=== PATIENT | female | born 1945 | race Caucasian/White ===

== ENCOUNTER 2024-07-05 13:00 | Outpatient (RCR) | payer MEDICARE, SELFPAY ==
--- NOTE | 2024-06-07 13:59 | OPREHPOC ---
Outpatient Therapy Plan of Care This is a Multidisciplinary Plan of Care that may contain components documented by all disciplines (PT, OT, and ST.) PT Problem 1 PT Problem #1 Knowledge Deficit PT Goal 1 Goal / Goal Update [place] with HEP Target Visit 4 PT Goal 2 Goal / Goal Update Report no pain greater than 2/10 for 2 consecutive weeks Target Visit 8 PT Problem 2 PT Problem #2 Impaired Range of Motion PT Goal 1 Goal / Goal Update 1. Improve diana hip abduction to 40 degrees to improve capsular mobility to reduce lumbar strain 2. Patient will demonstrate minimal to no piriformis restriction to improve hip rotation symmetry Target Visit 8 PT Problem 3 PT Problem #3 Impaired Strength PT Goal 1 Goal / Goal Update 1. Improve diana hip flexion strength to 4+/5 to improve foot clearance with ADLs 2. Improve bii hip abduction strength to 4/5 to improve lateral stability with ADLs and pelvic motion Target Visit 8
--- NOTE | 2024-06-07 13:59 | PTOPEVAL1 ---
Assessment and note entered by Viraj Duran, PT Evaluation Information Assessment Status Evaluation ICD-10 Condition Codes (PT) Pain in low back M54.50 Onset March 2024 Subjective Information Reports that she is unsure what happened, but she was getting up out of bed and woke up with significant pain. She has had pain since. She has been taking Tylenol and Icy-Hot to help but it is not working. She visited Urgent care and had imaging to assess. She is having most trouble with standing long periods of time. She gets all of her pain in her back and denies radiculopathy. Reported Pain Level Pain Score 2: Self Report Assessment PT Clinical Summary Patient presents with signs and symptoms consistent with lumbar stenosis coupled with very poor hip mobility. Patient has notable core and hip weakness to compound these issues. Will benefit from skilled therapy to address these deficits to both minimize pain and improve function. Plan of Care Interventions Gait Training,Manual Therapy,Neuro Re-education, Therapeutic Activities,Therapeutic Exercise PT Services Indicated Yes Treatment Frequency and 2x/week for 8 visits Duration These treatments will address the objective and functional deficits as defined above. The patient will be advanced safely and appropriately in order for the patient to progress towards his/her prior level of function. Additional exercises will be introduced and as well as a comprehensive home exercise program upon discharge, if needed, ?to ensure carryover of functional gains achieved in the clinic. This treatment plan has been reviewed and agreement upon by the patient.
--- NOTE | 2024-07-05 14:02 | OPREHPOC ---
Outpatient Therapy Plan of Care This is a Multidisciplinary Plan of Care that may contain components documented by all disciplines (PT, OT, and ST.) PT Problem 1 PT Problem #1 Knowledge Deficit PT Goal 1 Goal / Goal Update [place] with HEP Target Visit 4 Progress Met PT Goal 2 Goal / Goal Update Report no pain greater than 2/10 for 2 consecutive weeks Target Visit 8 Progress Met PT Problem 2 PT Problem #2 Impaired Range of Motion PT Goal 1 Goal / Goal Update 1. Improve diana hip abduction to 40 degrees to improve capsular mobility to reduce lumbar strain 2. Patient will demonstrate minimal to no piriformis restriction to improve hip rotation symmetry Target Visit 8 Progress Met PT Problem 3 PT Problem #3 Impaired Strength PT Goal 1 Goal / Goal Update 1. Improve diana hip flexion strength to 4+/5 to improve foot clearance with ADLs 2. Improve bii hip abduction strength to 4/5 to improve lateral stability with ADLs and pelvic motion Target Visit 8 Progress Met
--- NOTE | 2024-07-05 14:02 | PTOPDC ---
Assessment and note entered by Viraj Duran, PT Evaluation Information Assessment Status Discharge ICD-10 Condition Codes (PT) Pain in low back M54.50 Onset March 2024 Subjective Information Patient reports that she has seen a lot of benefit from therapy at this point. Pain has improved and she has seen improvement in both strength and ROM . Reports that she is not consistent with exercise time at home, but she has been doing them daily. No concerns for discharge at this time. Reported Pain Level Pain Score 0: Self Report Assessment PT Clinical Summary Patient has met all goals for therapy and is suitable for discharge to [facility] at this time. Patient reflects HEP compliance and overall understanding of regional [employer] goals of exercise. Plan of Care PT Services Indicated Yes
== END 2024-07-05 16:01 | disposition home or self-care (01) ==
LOC: ANHPT 13:00
PROVIDERS: PCP Internal Medicine; Visit Provider Internal Medicine
DX: M54.50 Low back pain, unspecified (principal)
CPT/HCPCS: 97110; 97161; 97530

== ENCOUNTER 2024-10-12 11:05 | Outpatient (CLI) | payer MEDICARE, SELFPAY ==
--- OUTSIDE RECORDS SUMMARY | 2024-10-12 11:14 | XMS_ITS | CONTINUITY OF CARE DOCUMENT ---
Author Name garethfrancescagarethfrancesca Address Unknown Organization [facility] Address [address] [place] [address] Phone [phone] Care Team Providers Care Pipe Production Worker Name Role Phone Juan Emanuel MD Unavailable TICO WALKER MD Unavailable TICO WALKER MD Unavailable PROBLEMS Condition Status Date Provider Notes HTN essential--echo ef 65%, 06/2019 active Juan Emanuel MD Diabetes mellitus active Juan Emanuel MD Shortness of breath active Juan Emanuel MD Diastolic dysfunction active Juan Estrada Pulmonary hypertension, secondary - nml sleep study active Juan Emanuel MD Cramps completed - Juan Emanuel MD CKD-follows w/IJ Adelfo active Juan Emanuel MD Leg edema, bilateral active Jarvis Ahmedzai Cardiology examination active Jarvis Colón ENCOUNTERS Date Type Provider Location Encounter Diag nosis - In-person encounter Office Visit Juan Emanuel MD [facility] Cardiology examination - In-person encounter Office Visit Juan Emanuel MD [facility] - In-person encounter Office Visit Juan Emanuel MD [facility] - In-person encounter Office Visit Juan Emanuel MD [facility] - In-person encounter Office Visit Juan Emanuel MD [facility] - In-person encounter Office Visit Juan Emanuel MD [facility] Leg edema, bilateral - In-person encounter Office Visit Juan Emanuel MD [facility] HTN essential--echo ef 65%, 06/2019 - In-person encounter Office Visit Juan Emanuel MD [facility] Pulmonary hypertension, secondary - nml sleep study - In-person encounter Office Visit Juan Emanuel MD [facility] - In-person encounter Office Visit Juan Emaunel MD [facility] CrampsCKD-follows w/PAM Emanuel - In-person encounter Office Visit Juan Emanuel MD [facility] - In-person encounter Office Visit Juan Emanuel MD [facility] HTN essential--echo ef 65%, 06/2019Diabetes mellitusShortness of breathDiastolic dysfunctionPulmonary hypertension, secondary - nml sleep study VITAL SIGNS Date Observation Value Provider Body Mass Index (Ratio) 31.95 kg/m2 Grant Emanuel MD blood pressure, diastolic 69 mm[Hg] Frances Rodriguez blood pressure, systolic 129 mm[Hg] Anastasia Rodriguez oxygen saturation, oximetry 95 % Dawn Rodriguez pulse rate 88 /min Dawn Rodriguez respiratory rate E&M 12 /min Dawn Rodriguez weight E&M 192 [lb_av] Dawn Rodriguez height E&M 65 [in_i] Dawn Rodriguez blood pressure, cuff size regular Frances Rodriguez Body Mass Index (Ratio) 33.68 kg/m2 Grant Emanuel MD blood pressure, cuff size large Ta iza Lovett blood pressure, diastolic 84 mm[Hg] Ta iza Lovett blood pressure, systolic 126 mm[Hg] Tab constantinoa Lovett oxygen saturation, oximetry 98 % Kalli Lovett pulse rate 84 /min Kalli Lovett weight E&M 202.4 [lb_av] Kalli Lovett respiratory rate E&M 12 /min Kalli Lovett height E&M 65 [in_i] Kalli B[place]y [place] Body Mass Index (Ratio) 33.61 kg/m2 Grant Emanuel MD blood pressure, cuff size regular Shira [facility] blood pressure, diastolic 73 mm[Hg] [facility] blood pressure, systolic 102 mm[Hg] [facility] pulse rate 101 /min [facility] oxygen saturation, oximetry 95 % [facility] respiratory rate E&M 16 /min Asiya Sanchez iller weight E&M 202 [lb_av] [facility] height E&M 65 [in_i] [facility] Body Mass Index (Ratio) 33.11 kg/m2 Grant Emanuel MD blood pressure, diastolic 89 mm[Hg] Violet Ferraro blood pressure, systolic 170 mm[Hg] [facility] daniele Cloquet oxygen saturation, oximetry 95 % Zina Ferraro pulse rate 97 /min Zina estrada respiratory rate E&M 16 /min Jazmin Ferraro blood pressure, cuff size large Violet Ferraro weight E&M 199 [lb_av] Zina estrada height E&M 65 [in_i] Zina estrada Body Mass Index (Ratio) 32.75 kg/m2 Grant Emanuel MD blood pressure, diastolic 83 mm[Hg] [facility] jami Cory blood pressure, systolic 163 mm[Hg] Mee bolden Cory oxygen saturation, oximetry 96 % Christina Cory pulse rate 79 /min Christina Cory respiratory rate E&M 16 /min Christina Odin pineda weight E&M 196.8 [lb_av] Christina Cory height E&M 65 [in_i] Christina Cory Body Mass Index (Ratio) 32.78 kg/m2 Grant Emanuel MD blood pressure, cuff size large Az john [place] blood pressure, diastolic 80 mm[Hg] Az john [place] blood pressure, systolic 140 mm[Hg] [facility] daniele Ferraro oxygen saturation, oximetry 94 % Zina Ferraro pulse rate 92 /min Zina estrada respiratory rate E&M 16 /min Jazmin Ferraro weight E&M 197 [lb_av] Zina estrada height E&M 65 [in_i] Zina estrada Body Mass Index (Ratio) 31.25 kg/m2 Grant Emanuel MD blood pressure, diastolic 60 mm[Hg] Li nkLogvimal blood pressure, systolic 124 mm[Hg] Janeth kLogic blood pressure, diastolic 60 mm[Hg] Tatiana Soliz blood pressure, systolic 124 mm[Hg] Erica Soliz oxygen saturation, oximetry 97 % Isela Soliz respiratory rate E&M 16 /min Romain Soliz pulse rate 93 /min Isela jarvis weight E&M 187.8 [lb_av] Isela henningon height E&M 65 [in_i] Isela jarvis Body Mass Index (Ratio) 34.11 kg/m2 Grant Emanuel MD blood pressure, cuff size large Ke rri Kiritmonicamoses blood pressure, diastolic 70 mm[Hg] Winston rri Argelia blood pressure, systolic 130 mm[Hg] Jamal ri Argelia oxygen saturation, oximetry 96 % Giovanna Kiritsteve respiratory rate E&M 16 /min Giovanna Rod annabelenenfcopley hospitalmonik pulse rate 92 /min Giovanna Mia [facility] weight E&M 205 [lb_av] Giovanna Uzmae [facility] height E&M 65 [in_i] Giovanna Mia [facility] Body Mass Index (Ratio) 34.61 kg/m2 Grant Emanuel MD blood pressure, diastolic 78 mm[Hg] To [facility] blood pressure, systolic 146 mm[Hg] Ton [facility] blood pressure, resting Yes [facility] oxygen saturation, oximetry 97 % [facility] respiratory rate E&M 16 /min [facility] pulse rate 86 /min [facility] weight E&M 208 [lb_av] [facility] height E&M 65 [in_i] [facility] Body Mass Index (Ratio) 35.77 kg/m2 Grant Emanuel MD blood pressure, cuff size large Cr jarvis Castelan blood pressure, diastolic 65 mm[Hg] Cr jarvis Castelan blood pressure, systolic 140 mm[Hg] Cry dany Castelan oxygen saturation, oximetry 97 % Zaida Castelan respiratory rate E&M 17 /min Zaida Castelan pulse rate 82 /min Zaida slade weight E&M 215 [lb_av] Zaida slade height E&M 65 [in_i] Zaida slade Body Mass Index (Ratio) 35.61 kg/m2 Grant Emanuel MD blood pressure, cuff size large Ke rri Gruenealbertarupaer blood pressure, diastolic 72 mm[Hg] Ke rri Gruenenfelder blood pressure, systolic 148 mm[Hg] Jamal ri Argelia oxygen saturation, oximetry 97 % Giovanna Grsteve respiratory rate E&M 18 /min Giovanna G annabelenenfrupaer pulse rate 86 /min Giovanna Mia mcdanieler weight E&M 214 [lb_av] Giovanna Mia lder height E&M 65 [in_i] Giovanna Mia lder Body Mass Index (Ratio) 38.44 kg/m2 Grant Emanuel MD blood pressure, cuff size large Ke rri Kirituenealbertarupaer blood pressure, diastolic 80 mm[Hg] Ke rri Gruenenfelder blood pressure, systolic 150 mm[Hg] Jamal ri Argelia oxygen saturation, oximetry 96 % Giovanna Leslyabhijeetalbertarupaer respiratory rate E&M 18 /min Giovanna G annabelenenfdyllan pulse rate 85 /min Giovanna Mia lder weight E&M 231 [lb_av] Giovanna Grmonicanenfe lder height E&M 65 [in_i] Giovanna Grmonicanenfe lder ALLERGIES No Known Drug Allergies HISTORY OF MEDICATION USE Medication Status Instructions Dates Provider Indications Com ments Ozempic 1 mg/dose (4 mg/3 mL) pen injector active Jarvis Ahmedzai Myrbetriq 25 mg tablet extended release 24 hr active Jarvis Ahmedzai metformin (Glucophage XR) 500 mg tablet extended release 24 hr active Jarvis Ahmedzai metformin 1,000 mg tablet completed Take 1 tablet by mouth twice a day - Jarvis Colón spironolactone 25 mg tablet active TAKE 1 TABLET BY MOUTH EVERY DAY Lizzie Sharma spironolactone 25 mg tablet completed Take 1 tablet by mouth once a day - Jarvis Colón OZEMPIC completed as directed - Jarvis Colón Amaryl 2 mg tablet active Take 1 tablet by mouth once a day as needed Jarvis Colón magnesium oxide 400 mg (241.3 mg magnesium) tablet active once a day Giovanna Stout WOMENS MULTIVITAMIN TABS active once a day Giovanna Stout VITAMIN D2 TABLET active Take 1 tablet by mouth every two weeks Zina Ferraro FE TABS TABLET DELAYED RELEASE active once a day Giovanna Stout B-12 TABLET active once a day Giovanna Stout aspirin 81 mg tablet,delayed release (DR/EC) active 1 tablet by mouth once a day Giovanna Stout ACTOS 15 MG ORAL TABLET completed once a day - Giovanna Stout simvastatin 40 mg tablet active 1 tablet once a day Giovanna Stout losartan 100 mg tablet active once a day Benjamín Pope MD GLIPIZIDE 10 MG ORAL TABLET completed take one pill twice a day - Zaida Castelan metformin 1,000 mg tablet completed Take 1 twice a day - Jarvis Colón SOCIAL HISTORY Date Observation Value Provider smoking, year quit 2008 Jarvis andersen number of years as a smoker 40 a Jarvis Colón smoking history, tot al pack/day 1.5 ppd Jarvis Colón cigarette use yes Jarvis Colón smoking status Former smoker Jarvis Aguilar i smoking, year quit 2008 Jarvis andersen number of years as a smoker 40 a Jarvis Colón smoking history, tot al pack/day 1.5 ppd Jarvis Colón cigarette use yes Jarvis Colón smoking status Former smoker Jarvis Aguilar i smoking, year quit 2008 Jarvis andersen number of years as a smoker 40 a Jarvis Colón smoking history, tot al pack/day 1.5 ppd Jarvis Colón cigarette use yes Jarvis Colón smoking status Former smoker Jarvis Aguilar i number of grandchildren Juan Mcdermott social history E&M S moking History: Deep carrington is a former smoker. Anat Mcdermott smoking status Former smoker Zina march seatbelt usage 100 % Anat Mcdermott smoking, year quit 2008 Anat lee number of years as a smoker 40 a Anatlora Mcdermott smoking history, tot al pack/day 1.5 ppd Anat Mcdermott cigarette use yes Anat Mcdermott social history reviewed E&M revi ewed - no changes required Anat Mcdermott seatbelt usage 100 % Christina Ray smoking, year quit 2008 Christina Vaibhav is number of years as a smoker 40 a Christina Ray smoking history, tot al pack/day 1.5 ppd Christinayuan Ray cigarette use yes Christina Cory smoking status Former smoker Christina Ray social history reviewed E&M revi ewed - no changes required Juan Emanuel MD social history E&M S moking History: Deep carrington is a former smoker. Jarvis Colón seatbelt usage 100 % Zina Montilla smoking, year quit 2008 Zina Ferraro number of years as a smoker 40 a Zina Ferraro smoking history, tot al pack/day 1.5 ppd Zina Ferraro cigarette use yes Zina Murphy nd smoking status Former smoker Zina march social history reviewed E&M revi ewed - no changes required Juan Emanuel MD social history E&M S moking History: Deep carrington is a former smoker. Jarvis Mortonpabloекатерина seatbelt usage 100 % Isela Mccabe smoking, year quit 2008 Isela Soliz number of years as a smoker 40 a Isela Soliz smoking history, tot al pack/day 1.5 ppd Isela Soliz cigarette use yes Isela martinez smoking status Former smoker Isela Machado social history reviewed E&M revi ewed - no changes required Jarvis Colón social history E&M S moking History: Deep carrington is a former smoker. Canelo Noe social history reviewed E&M revi ewed - no changes required Canelo Noe seatbelt usage 100 % Giovanna quiñonez smoking, year quit 2008 Giovanna nixon number of years as a smoker 40 a Giovanna Stout smoking history, tot al pack/day 1.5 ppd Giovanna Stout cigarette use yes Giovanna mijares smoking status Former smoker Giovanna Frank lara social history E&M S moking History: Deep carrington is a former smoker. Juan Emanuel MD social history reviewed E&M revi ewed - no changes required Juan Emanuel MD seatbelt usage 100 % Tonsha Mead smoking, year quit 2008 Tonsha Mo ss number of years as a smoker 40 a Tonsha Mead smoking history, tot al pack/day 1.5 ppd Tonsha Mead cigarette use yes Tonsha Mead smoking status Former smoker Tonsha Mead social history reviewed E&M revi ewed - no changes required Juan Emanuel MD social history E&M S moking History: Deep carrington is a former smoker. Juan Emanuel MD cigarette use yes Zaida Garay ms smoking status Former smoker Zaida hameed seatbelt usage 100 % Nia Jacksonkristina tabitha smoking, year quit 2008 Nia Al exander number of years as a smoker 40 a Nia Moore smoking history, tot al pack/day 1.5 ppd Nia Oscar smoking status Former smoker Nia Jackson nder cigarette use yes Nia Young seatbelt usage 100 % Nia Jacksonn tabitha smoking, year quit 2008 Nia Al exander number of years as a smoker 40 a Nia Moore smoking history, tot al pack/day 1.5 ppd Nia Oscar smoking status Former smoker Nia Jackson nder cigarette use yes Nia Young er social history reviewed E&M revi ewed - no changes required Juan Emanuel MD smoking, year quit 2008 Giovanna nixon number of years as a smoker 40 a Giovanna Stout smoking history, tot al pack/day 1.5 ppd Giovanna Stout cigarette use yes Giovanna mijares smoking status Former smoker Giovanna fitcher social history reviewed E&M revi ewed - no changes required Juan Emanuel MD number of years as a smoker 40 a Giovanna Stout smoking history, tot al pack/day 1.5 ppd Giovanna Stout smoking, year quit 2009 Giovanna Mcgregor hussain cigarette use yes Giovanna mijares smoking status Former smoker Giovanna pinzonelder FAMILY HISTORY Family Member Condition Father Negative FH of Coron rachlel Artery Disease Mother Negative FH of Coron rachell Artery Disease INSURANCE PROVIDERS Payer name Policy type / Coverage type [place] red green party ID AARP MEDICARE ADVANTAGE HMO-POS HMO [id number] ADVANCE DIRECTIVES Name Date DISCUSSED - NO DECISION MADE TREATMENT PLAN Date Name Performer [id number],SAnat [id number],SAnat [id number],C, B P today: 170/89 P rior BP: 163/83 (04/26/2022) Anat Mcdermott [id number],S, Jarvis Ahmedza i [id number],S, Jarvis Ahmedza i [id number],S, Jarvis Ahmedza i [id number],S, Jarvis Ahmedza i [id number],S, Jarvis Ahmedza i [id number],S, Jarvis Ahmedza i [id number],S, Jarvis Ahmedza i [id number],S, Jarvis Ahmedza i [id number],S, Jarvis Ahmedza i [id number],S, Jarvis Ahmedza i [id number],S, Jarvis Ahmedza i [id number],S, Jarvis Aguilar i [id number],S, Jarvis Aguilar i [id number],S, Jarvis Aguilar i [id number],B, Jarvis Aguilar i Cardiology Juan Emaunel MD Cardiology: H er updated medication list for this problem includes: Spironolactone 25 Mg Tablet (Spironolactone) ..... Take 1 tablet by mouth every day Aspirin 81 Mg Tablet,delayed Release (dr/ec) (Aspirin) ..... 1 tablet by mouth once a day Losartan 100 Mg Tablet (Losartan) ..... Once a day Juan Emanuel MD Cardiology: H er updated medication list for this problem includes: Ozempic 1 Mg/dose (4 Mg/3 Ml) Pen Injector (Semaglutide) Metformin (glucophage Xr) 500 Mg Tablet Extended Release 24 Hr (Metformin (glucophage xr)) Aspirin 81 Mg Tablet,delayed Release (dr/ec) (Aspirin) ..... 1 tablet by mouth once a day Losartan 100 Mg Tablet (Losartan) ..... Once a day Juan Emanuel MD Cardiology:This visi t has been a part of the consistent, comprehensive, and ongoing management of the chronic medical condition(s) listed above for the patient. Her updated medication list for this problem includes: Spironolactone 25 Mg Tablet (Spironolactone) ..... Take 1 tablet by mouth every day Aspirin 81 Mg Tablet,delayed Release (dr/ec) (Aspirin) ..... 1 tablet by mouth once a day Losartan 100 Mg Tablet (Losartan) ..... Once a day Juan Emanuel MD Cardiology: H er updated medication list for this problem includes: Spironolactone 25 Mg Tablet (Spironolactone) ..... Take 1 tablet by mouth every day Aspirin 81 Mg Tablet,delayed Release (dr/ec) (Aspirin) ..... 1 tablet by mouth once a day Losartan 100 Mg Tablet (Losartan) ..... Once a day BP today: 126/84 P rior BP: 102/73 (06/07/2023) T his visit has been a part of the consistent, comprehensive, and ongoing management of the chronic medical condition(s) listed above for the patient. Juan Emanuel MD Cardiology: H er updated medication list for this problem includes: Ozempic 0.25 Mg Or 0.5 Mg (2 Mg/3 Ml) Pen Injector (Semaglutide) Metformin (glucophage Xr) 500 Mg Tablet Extended Release 24 Hr (Metformin (glucophage xr)) Aspirin 81 Mg Tablet,delayed Release (dr/ec) (Aspirin) ..... 1 tablet by mouth once a day Losartan 100 Mg Tablet (Losartan) ..... [facility] a day [facility]: H er updated medication list for this problem includes: Spironolactone 25 Mg Tablet (Spironolactone) ..... Take 1 tablet by mouth every day Aspirin 81 Mg Tablet,delayed Release (dr/ec) (Aspirin) ..... 1 tablet by mouth once a day Losartan 100 Mg Tablet (Losartan) ..... Once a day BP today: 126/84 P rior BP: 102/73 (06/07/2023) Jarvis jacob Cardiology [facility] Cardiology [facility] Cardiology [facility] Cardiology [facility] Cardiology [facility] Cardiology [facility] Cardiology: H er updated medication list for this problem includes: Spironolactone 25 Mg Tablet (Spironolactone) ..... Take 1 tablet by mouth every day Aspirin 81 Mg Tablet,delayed Release (dr/ec) (Aspirin) ..... 1 tablet by mouth once a day Losartan 100 Mg Tablet (Losartan) ..... [facility] H er updated medication list for this problem includes: Aspirin 81 Mg Tablet,delayed Release (dr/ec) (Aspirin) ..... 1 tablet by mouth once a day Amaryl 2 Mg Tablet (Glimepiride) ..... Take 2 tablet by mouth twice a day Losartan 100 Mg Tablet (Losartan) ..... Once a day Metformin 1,000 Mg Tablet (Metformin) ..... Take 1 twice a day Jarvis Avazai Cardiology: H er updated medication list for this problem includes: Spironolactone 25 Mg Tablet (Spironolactone) ..... Take 1 tablet by mouth every day Aspirin 81 Mg Tablet,delayed Release (dr/ec) (Aspirin) ..... 1 tablet by mouth once a day Losartan 100 Mg Tablet (Losartan) ..... Once a day Jarvis Colón Cardiology Anat Mcdermott Cardiology Anat Mcdermott Cardiology: B P today: 170/89 P rior BP: 163/83 (04/26/2022) Anat Mcdermott Telehealth Jarvis Ahmedzaremedios Telehealth Jarvis Ahpablozaremedios Telehealth Jarvis Ahmedzaremedios Telehealth Jarvis Ahmedzai Telehealth Jarvis Ahmedzai Cardiology Jarvis Selenemedzaremedios Cardiology Jarvis Mortonmedzaremedios Cardiology Jarvis Ahmedzaremedios Cardiology Jarvis Ahmedzai Cardiology Jarvis Ahmedzai Cardiology Jarvis Ahmedzai Cardiology Jarvis Ahmedzai Cardiology Jarvis Ahmedzai Cardiology Jarvis Ahmedzai Cardiology Jarvis Ahmedzai Cardiology Follow up Juan horowitz MD Cardiology Follow up Juan horowitz MD Cardiology Follow up Juan horowitz MD Cardiology Follow up Juan horowitz MD Cardiology Juan Emanuel MD Cardiology Juan Emanuel MD Cardiology Juan Emanuel MD Cardiology Juan Emanuel MD Cardiology Juan Emanuel MD Cardiology Juan Emanuel MD Cardiology Juan Emanuel MD Cardiology Juan Emanuel MD Cardiology Juan Emanuel MD Cardiology Follow up Tonbrant horowitz MD Cardiology Follow up Tonbrant horowitz MD Cardiology Follow up Toniya Quincy horowitz MD Cardiology Follow up Toniya Quincy horowitz MD Cardiology Follow up Toniya Quincy horowitz MD Cardiology New Patient Toniya Courtney garza MD Cardiology New Patient Toniya Courtney garaz MD Cardiology New Patient Toniya Courtney garza MD Cardiology New Patient Toniya Courtney garza MD Cardiology New Patient Toniya Courtney garza MD Date Name Complete Echo Venous Doppler Bilat eral LE - Reflux Complete Echo HISTORY OF PROCEDURES Procedure Date Procedure Name Provider Procedure Notes S tatus Complex e/m visit add on Juan Emanuel MD completed EKG Juan Emanuel MD completed Complex e/m visit add on Juan Emanuel MD completed EKG Juan Emanuel MD completed EKG Juan Emanuel MD completed EKG Juan Emanuel MD completed EKG Juan Emanuel MD completed SNOMED-CT: [id number] Physical Exam, Performed: Pulse Exam of Foot Juan Emanuel MD completed EKG Juan Emanuel MD completed SNOMED-CT: 103181431 [id number] Current Medications Documented Juan Emanuel MD completed
--- OUTSIDE RECORDS SUMMARY | 2024-10-12 11:15 | XMS_ITS ---
Author Organization [facility] Address [address] [place] [address] Care Team Providers Care Identification Officer Name Role Phone Arvin Emanuel Unavailable [phone] Medications Medication SIG (Take, Route, Frequency, Duration) Notes Start Date End Date Status Losartan Potassium 50 MG TAKE 1 TABLET B Y MOUTH ONCE DAILY for 100 Active Gabapentin 300 MG 1 capsule Orally Onc e a day for 90 day(s) 04/01/2023 Active Problems Problem Type SNOMED Code ICD Code Onset Dates Problem Status W/U Status Risk Notes Problem Essential hypertension (I10) Active confirmed Encounters Encounter Location Date Provider Diagnosis [place] [address] [place] [address] 06/08/2024 Arvin Emanuel Chronic kidney disease, stage 2 (mild) N18.2 ; Type 2 diabetes mellitus with hyperglycemia E11.65 ; Hyperlipidemia, unspecified E78.5 ; Abnormal radiologic findings on diagnostic imaging of unspecified kidney R93.429 and Essential hypertension I10 Assessments Encounter Date Diagnosis (ICD Code) Assessment Notes Treatment Notes Treatment Clinical Notes Section Notes 06/08/2024 Chronic kidney disease, stage 2 (mild) (ICD-10 - N18.2) 06/08/2024 Type 2 diabetes mellitus with hyperglycemia (ICD-10 - E11.65) 06/08/2024 Hyperlipidemia, unspecified (ICD-10 - E78.5) 06/08/2024 Abnormal radiologic findings on diagnostic imaging of unspecified kidney (ICD-10 - R93.429) 06/08/2024 Essential hypertension (ICD-10 - I10) Plan Of Treatment Next Appt Details Provider Name:Arvin Emanuel , 10/19/2024 01:00:00 PM, [address], [place], [address], Progress Notes * PRINCESS EVANSDOB: [birth year] (79 yo F)Acc No.[id number]:06/08/2024 Progress Notes Patient: PRINCESS HAYES Provider: Марина CHEATHAM MD, Joan.Kate.Manoj.P, F.A.S.N. :1945 A ge:79 Y S ex:Female Date:06/08/2024 Address:[address] [place] [address] [address] [place] [address] Subjective: * Chief Complaints: * * Medical History: * Medications: T aking Gabapentin 300 MG Capsule 1 capsule Orally Once a day , Taking Losartan Potassium 50 MG Tablet TAKE 1 TABLET BY MOUTH ONCE DAILY Objective: * Vitals: Assessment: * Assessment: 1. C hronic kidney disease, stage 2 (mild) - N18.2 (Primary) 2 . T ype 2 diabetes mellitus with hyperglycemia - E11.65 3 . H yperlipidemia, unspecified - E78.5 4 . A bnormal radiologic findings on diagnostic imaging of unspecified kidney - R93.429 5 . E ssential hypertension - I10 Plan: * Treatment: * Billing Information: * Visit Code: 48854 Office Visit, Est Pt., Level 4. * Procedure Codes: * Electronic signature of Herman Emanuel MD on 10/12/2024 at 11:14 AM CDT Sign off status: Pending * Provider: Марина CHEATHAM MD, Joan.Kate.Manoj.P, F.A.S.N. Date: 0 06/08/2024 Generated for Printing/Faxing/eTransmitting on: 0 10/12/2024 11:14 AM CDT
--- OUTSIDE RECORDS SUMMARY | 2024-10-12 11:15 | XMS_ITS | Data Portability ---
Author Organization [facility] [employer], Main Office Address [address] [place] [address] Care Team Providers Care Supplemental Manager Name Role Phone TICO PADRON Primary Care Provider [phone] TICO PADRON Referring Provider JUAN OCAMPO Cataloging Assistant VIRAJ MERLOS Death Clearance Coordinator ARVIN OCAMPO Grain Unloader Assessment Encounter Date Assessment Date Assessment LastModified by Organization Details LastModified Time 01/10/2024 01/10/2024 02/01/2022: LIPIDS/TSH: WNL Dr Adelfo OROZCO CBC: WNL CMP: Gluc 132 A1C 6.8 VIT D WNL 10/04/2022: A1C 6.7 Gluc 128 04/26/2023: A1C 7.8 TG 167 Gluc 181, BUN 20, Ca 10.4 08/26/2023: A1C 7.7 Gluc 173 01/05/2024: TSH 0.033L, FT4 1.18 Lipids: Stable Dr Ocampo IJ Gluc 126, BUN 22 A1C 8.1 Not available 01/10/2024 14:34:20 04/19/2024 04/19/2024 02/01/2022: LIPIDS/TSH: WNL Dr Ocampo IJ CBC: WNL CMP: Gluc 132 A1C 6.8 VIT D WNL 10/04/2022: A1C 6.7 Gluc 128 04/26/2023: A1C 7.8 TG 167 Gluc 181, BUN 20, Ca 10.4 08/26/2023: A1C 7.7 Gluc 173 01/05/2024: TSH 0.033L, FT4 1.18 Lipids: Stable Dr Adelfo OROZCO Gluc 126, BUN 22 A1C 8.1 Not available 04/19/2024 17:42:05 05/31/2024 05/31/2024 02/01/2022: LIPIDS/TSH: WNL Dr Adelfo OROZCO CBC: WNL CMP: Gluc 132 A1C 6.8 VIT D WNL 10/04/2022: A1C 6.7 Gluc 128 04/26/2023: A1C 7.8 TG 167 Gluc 181, BUN 20, Ca 10.4 08/26/2023: A1C 7.7 Gluc 173 01/05/2024: TSH 0.033L, FT4 1.18 Lipids: Stable Dr Adelfo OROZCO Gluc 126, BUN 22 A1C 8.1 05/16/2024: TG 169 Dr Adelfo OROZCO Gluc 195 A1C 8.1 Not available 05/30/2024 18:36:57 09/27/2024 09/27/2024 This note is dictated and transcribed by [employer]. Ambulance Operations Supervisor variances may occur. Despite proofreading, typographical errors may occur. Occasional wrong-word or 'nhscu-[id number]' substitutions may have occurred due to the inherent limitations of voice recording. Read the chart carefully and recognize, using context, where substitutions have occurred. [email or web address] Not available 10/11/2024 13:56:33 Plan of Treatment Reminders Order Date Submit Date Provider Last Modified By Organization Details Last Modified Time Details Appointments Any 30 2024 02:00P M Tico dickens MD Not available Not available Not available Establish ed Patient 15 2024 02:00P M Viraj Merlos DPM Not available Not available Not available Lab vitamin D, 25-hydrox y, total, serum 2024 025 [facility] (Lab), [address] [place], [address], 05/31/2024 16:10:42 glycohemo globin, total, blood 2024 025 [facility] (Lab), [address] [place], [address], 05/31/2024 16:10:42 microalbu min, urine 2024 025 [facility] (Lab), [address] [place], [address], 05/31/2024 16:10:42 lipid panel, serum 2024 025 [facility] (Lab), [address] [place], [address], 05/31/2024 16:10:43 CBC w/ auto diff 2024 025 [facility] (Lab), [address] [place], [address], 05/31/2024 16:10:42 CMP, serum or plasma 2024 025 [facility] (Lab), [address] [place], [address], 05/31/2024 16:10:42 TSH, serum or plasma 2024 025 [facility] (Lab), [address] [place], [address], 05/31/2024 16:10:42 lipid panel, serum 2023 024 [facility] (Lab), [address] [place], [address], 05/16/2024 13:11:21 CBC w/ auto diff 2023 024 [facility] (Lab), [address] [place], [address], 04/19/2024 17:59:07 CMP, serum or plasma 2023 024 [facility] (Lab), [address] [place], [address], 05/17/2024 09:39:34 TSH, serum or plasma 2023 024 [facility] (Lab), [address] [place], [address], 05/16/2024 13:09:59 vitamin D, 25-hydrox y, total, serum 2023 024 [facility] (Lab), [address] [place], [address], 04/19/2024 17:59:07 noninvasi ve colorecta l cancer DNA + occult blood screening , QL, stool 2023 024 [email or web address] [facility] (Cologuard Orders Only), [address], [address], [place], [address], 04/26/2024 14:38:56 glycohemo globin, total, blood 2023 024 [facility] (Lab), [address] [place], [address], 04/19/2024 17:59:07 microalbu min, urine 2023 024 [facility] (Lab), [address] [place], [address], 04/19/2024 17:59:07 vitamin D, 25-hydrox y, total, serum [address] (Lab), [address] [place], [address], 07/31/2024 11:04:26 noninvasi ve colorecta l cancer DNA + occult blood screening , QL, stool 2023 024 [facility] (Cologuard Orders Only), [address], [address], [place], [address], 01/23/2024 09:50:59 glycohemo globin, total, blood [address] (Lab), [address] [place], [address], 07/10/2024 09:11:26 microalbu min, urine [address] (Lab), [address] [place], [address], 07/10/2024 09:11:26 lipid panel, serum [address] (Lab), [address] [place], [address], 07/10/2024 09:10:46 CBC w/ auto diff [address] (Lab), [address] [place], [address], 07/10/2024 09:11:26 CMP, serum or plasma [address] (Lab), [address] [place], [address], 07/10/2024 09:10:46 TSH, serum or plasma [address] (Lab), [address] [place], [address], 07/10/2024 09:10:46 Referral nephrolog ist referral 2024 025 [email or web address] Arvin Ocampo MD (Nephrology, [address], [address], [place], [address], 06/04/2024 09:33:23 endocrino logy referral - Please call patient to schedule an appointme nt. Thank you. 2024 025 [email or web address] Ad Orozco MD, [address], [place], [address], 08/13/2024 17:59:39 cardiolog ist referral - Per [facility] website, patient's plan does not require an insurance referral 2024 025 [place], [address], [address], [place], [address], 06/04/2024 09:32:45 physical therapist referral - Please call patient to schedule. 2023 024 [facility], [address] [place] [address], [place], [address], 07/05/2024 18:02:21 nephrolog ist referral 2023 024 denise Ocampo MD (Nephrology, [address], [address], [place], [address], 04/23/2024 14:28:11 endocrino logy referral 2023 024 denise Orozco MD, [address], [place], [address], 04/23/2024 14:28:31 cardiolog ist referral - Per [facility] website, patient's plan does not require an insurance referral 2023 024 [place], [address], [address], [place], [address], 04/23/2024 14:27:15 nephrolog ist referral 2023 024 michelle Ocampo MD (Nephrology, [address], [address], [place], [address], 08/08/2024 08:34:42 endocrino logy referral 2023 024 [email or web address] Ad Orozco MD, [address], [place], [address], 07/10/2024 09:10:59 cardiolog ist referral - Per [facility] website, patient's plan does not require an insurance referral 2023 024 [email or web address] [place], [address], [address], [address], 04/23/2024 14:27:28 Procedures None recorded. Surgeries None recorded. Imaging DEXA, axial skeleton [address] ([facility]), [address] [place], [address], 04/19/2024 19:43:40 DEXA, axial skeleton 2023 024 [facility] ([facility]), [address] [place], [address], 03/05/2024 16:56:43 Medication Orders Medrol (Juno) 4 mg tablets in a dose pack 2023 024 [email or web address] [facility] #[id number], [address] [facility], [place], [address], 05/31/2024 14:58:25 Patient TargetsNo targets recorded. Patient InstructionsNo instructions recorded. Reason for Referral Cataloging Assistant Referral for He art murmur Per [facility] website, patient's plan does not require an insurance referral Referring Physician: Tico Padron, Internal Medicine, Encounter Date: 01/10/2024 Endocrinology Referral for T ype 2 diabetes mellitus without complication Referring Physician: Tico Padron, Internal Medicine, Encounter Date: 01/10/2024 Grain Unloader Referral for Ch ronic kidney disease Referring Physician: Candiod Osei Medicine, Encounter Date: 01/10/2024 Cataloging Assistant Referral for He art murmur Per [facility] website, patient's plan does not require an insurance referral Referring Physician: Candido Osei, Encounter Date: 04/19/2024 Endocrinology Referral for T ype 2 diabetes mellitus without complication Referring Physician: Candido Osei Medicine, Encounter Date: 04/19/2024 Grain Unloader Referral for Ch ronic kidney disease Referring Physician: Candido Osei, Encounter Date: 04/19/2024 Physical Therapist Referral for Low back pain Please call patient to schedule. Referring Physician: Candido Osei, Encounter Date: 04/19/2024 Cataloging Assistant Referral for He art murmur Per [facility] website, patient's plan does not require an insurance referral Referring Physician: Candido Osei, Encounter Date: 05/31/2024 Endocrinology Referral for T ype 2 diabetes mellitus without complication Please call patient to schedule an appointment. Thank you. Referring Physician: Candido Osei, Encounter Date: 05/31/2024 Grain Unloader Referral for Ch ronic kidney disease Referring Physician: Candido Osei, Encounter Date: 05/31/2024 Results Created Date Observation Date Name Description Value Unit Range Abnormal Flag Note LastModifiedBy Organization Detail LastModifiedTime 01/05/20 24 01/05/2024 LIPID PANEL cholesterol 145 mg/dL 140-19 9 NIH PEG NSUS RECOM MENDA TION FOR CELSA STERO L: ADULT CHILD LOW RISK: <200 <170 BORDE RLINE : <200- 239 ----- HIGH RISK: >240 >200 Not Available [facility] (Lab) [address] [place], [address], 01/05/2024 16:18:35 01/05/20 24 01/05/2024 LIPID PANEL triglyceride s 131 mg/dL 0-150 NIH PEG NSUS REPOR T RECOM MENDA TION FOR TRIGL YCERI DESEAN: ADULT CHILD LOW RISK: <150 ----- BODER LINE: 150-1 99 ----- HIGH RISK: >200 ----- Not Available [facility] (Lab) [address] [place], [address], 01/05/2024 16:18:35 01/05/20 24 01/05/2024 LIPID PANEL HDL cholesterol 52 mg/dL 40- Not Available [facility] (Lab) [address] [place], [address], 01/05/2024 16:18:35 01/05/20 24 01/05/2024 LIPID PANEL LDL cholesterol, calculated 67 mg/dL 0-130 NIH PEG NSUS REPOR T RECOM MENDA TIONS FOR LDL: ADULT CHILD LOW RISK <130 <110 (OPTI MAL LDL) <100 ----- BORDE RLINE : 130-1 59 ----- HIGH RISK: >160 >130 A TRIGL YCERI DE RESUL T >400 INVAL IDATE S THE CALCU LATIO N FOR LDL FRACT IONAT ION - THE LDL RESUL T WILL NOT BE REPOR SKINNY. Not Available [facility] (Lab) [address] [place], [address], 01/05/2024 16:18:35 01/05/20 24 01/05/2024 T4 FREE free T4 1.18 NG/dL 0.78-2 .19 Not Available [facility] (Lab) [address] [place], [address], 01/05/2024 16:49:57 01/05/20 24 01/05/2024 TSH thyroid-stim ulating hormone 0.033 uIU/m L 0.465- 4.680 low Not Available [facility] (Lab) [address] [place], [address], 01/05/2024 17:01:48 01/18/20 24 01/18/2024 COLOG UARD cologuard result reportable NEGATI VE negati ve normal NEGAT NEAL TEST RESUL T. A negat neal Colog uard resul t indic ates a low likel ihood that a color ectal cance r (CRC) or advan ry adeno ma (concepción omato us polyp s with more advan ry pre-m align ant featu res) is prese nt. The [facility] e that a perso n with a negat neal Colog uard test has a color ectal cance r is less than 1 in 1500 (nega tive predi ctive value >99.9 %) or has an advan ry adeno ma is less than 5.3% (nega tive predi ctive value 94.7% ). These data are based on a prosp ectiv e cross -sect ional study of ,00 0 indiv idual s at [place] risk for color ectal cance r who were scree alyssa with both Colog uard and colon oscop y. (Davie Shoemaker et al, N Engl J Med 2014; 370(1 4):12 86-12 97) The dieudonne l value (refe rence range ) for this assay is negat neal. COLOG UARD RE-SC REEKYLEIGH NG RECOM MENDA TION: Perio dic color ectal cance r scree cresencio is an impor tant part of preve ntive healt hcare for asymp tomat ic indiv idual s at [place] risk for color ectal cance r. Follo wing a negat neal Colog uard resul t, the Ameri can Cance r Socie ty and U.S. Multi -Soci ety Task Force scree cresencio guide lines recom mend a Colog uard re-sc reeni ng inter salome of 3 years . Refer ences : Ameri can Cance r Socie ty Guide line for Color ectal Cance r Scree cresencio: https ://rachel w.can cer.o rg/ca ncer/ colon -rect al-ca ncer/ detec tion- diagn osis- stagi ng/ac s-rec ommen datio ns.ht ml.; Donald DK, Roberta estrada CR, Jeancarlos tang JK, Color ectal Cance r Scree cresencio: Recom menda tions for Physi cians and Patie nts from the U.S. Multi -Soci ety Task Force on Color ectal Cance r Scree cresencio , Ted murphy y 2017; 112:1 016-1 030. TEST DESCR IPTIO N: [place] site algor ithmi c jadyn sis of stool DNA-b iomar kers with hemog lobin immun oassa y. Quant itati ve value s of indiv idual bioma rkers are not repor table and are not assoc iated with indiv idual bioma rker resul t refer ence range s. Colog uard is inten ded for color ectal cance r scree cresencio of adult s of eithe r sex, 45 years or older , who [facility] for color ectal cance r (CRC) . Colog uard has been appro isabelle for use by the U.S. FDA. The perfo rmanc e of Colog uard was estab lishe d in a cross secti onal study of [facility] adult s aged 50-84 . Colog uard perfo rmanc e in patie nts ages 45 to 49 years was estim ated by sub-g roup jadyn sis of near- age group s. Colon oscop ies perfo rmed for a posit neal resul t may find as the most clini kae signi ficrashid t lesio n: color ectal cance r [4.0% ], advan ry adeno ma (incl uding sessi le vijaya skinny polyp s great er than or equal to 1cm diame ter) [20%] or non- advan ry adeno ma [31%] ; or no color ectal neopl ion [45%] . These estim ates are deriv ed from a prosp ectiv e cross -sect ional scree cresencio study of 10,00 0 indiv idual s at [facility] risk for color ectal cance r who were scree alyssa with both Colog uard and colon oscop y. (Impe riale T. et al, N Engl J Med 2014; 370(1 4):12 86-12 97.) Colog uard may produ ce a false negat neal or false posit neal resul t (no color ectal cance r or preca ncero us polyp prese nt at colon oscop y follo w up). A negat neal Colog uard test resul t does not guara ntee the absen ce of CRC or advan ry adeno ma (pre- cance r). The curre nt Colog uard scree cresencio inter salome is every 3 years . (Amer ican Cance r Socie ty and U.S. Multi -Soci ety Task Force ). Colog uard perfo rmanc e data in a 10,00 0 patie nt pivot al study using colon oscop y as the refer ence metho d can be acces sed at the follo wing locat ion: www.e xactl abs.c om/re sults . Addit ional descr iptio n of the Colog uard test proce ss, warni ngs and preca ution s can be found at www.c ologu garry.c om. Not Available [facility] (Cologuard Orders Only) [address], [place], [address], 01/23/2024 09:50:59 05/16/1905/16/2024 TSH W/REF ESTRELLITA FT4 TSH with reflex free T4 1.410 uIU/m L 0.465- 4.680 Not Available [facility] (Lab) [address] [place], [address], 05/16/2024 13:09:59 05/16/19 25 05/16/2024 LIPID PANEL cholesterol 133 mg/dL 140-19 9 low NIH PEG NSUS RECOM MENDA TION FOR CELSA STERO L: ADULT CHILD LOW RISK: <200 <170 BORDE RLINE : <200- 239 ----- HIGH RISK: >240 >200 Not Available [facility] (Lab) [address] [place], [address], 05/16/2024 13:11:21 05/16/19 25 05/16/2024 LIPID PANEL triglyceride s 169 mg/dL 0-150 high NIH PEG NSUS REPOR T RECOM MENDA TION FOR TRIGL YCERI DESEAN: ADULT CHILD LOW RISK: <150 ----- BODER LINE: 150-1 99 ----- HIGH RISK: >200 ----- Not Available [facility] (Lab) [address] [place], [address], 05/16/2024 13:11:21 05/16/19 25 05/16/2024 LIPID PANEL HDL cholesterol 61 mg/dL 40- Not Available [facility] (Lab) [address] [place], [address], 05/16/2024 13:11:21 05/16/19 25 05/16/2024 LIPID PANEL LDL cholesterol, calculated 38 mg/dL 0-130 NIH PEG NSUS REPOR T RECOM MENDA TIONS FOR LDL: ADULT CHILD LOW RISK <130 <110 (OPTI MAL LDL) <100 ----- BORDE RLINE : 130-1 59 ----- HIGH RISK: >160 >130 A TRIGL YCERI DE RESUL T >400 INVAL IDATE S THE CALCU LATIO N FOR LDL FRACT IONAT ION - THE LDL RESUL T WILL NOT BE REPOR SKINNY. Not Available [facility] (Lab) [address] [place], [address], 05/16/2024 13:11:21 03/05/20 24 03/05/2024 DEXA, axial skele ton [facility] [address] [place] [address] Patien t Name: KATRINA AGUIRRE Access ion #: [id number] Sex: F : 1944 2 Dictat ed By: Mirella Ann Attend ing Physic thania: SANTO KWONG [facility] Physic thania: SANTO KWONG Exam Date: 2023 14:18 PM Exam Name: XR DEXA-H IPS PELVIS SPINE Admitt ing Diagno sis(es ): INDICA TION: 78 years old, Female ; SCREEN ING FOR OSTEOP OROSIS . Tiffanie gonzalez. DEXA SCAN: BONE DENSIT Y REPORT : AP SPINE (L1-L4 ) : T Score: 3.4 LEFT HIP TOTAL : T Score: 1.6 RT HIP TOTAL : T Score: 1.1 TOTAL BILAT HIP AVG: T Score: 1.4 10 YEAR FRACTU RE RISK* Not provid ed. IMPRES HELIO: 1. Normal bone minera l densit y of the lumbar spine. 2. Normal bone minera l densit y of the bilate ral hips. ------ ------ ------ ------ ------ ------ ------ ------ ----- *FRAX versio n 3.08. Fractu re probab ility calcul ated for an untrea skinny patien t. Fractu re probab ility may be lower if the patien t has receiv ed treatm ent. T-scor e: compar matteo by nabil rajan ion (RICHAR) to a young adult popula dony luciamattie estrada for sex and ethnic ity (used for tiffanie gonzalez women and men >50 years) and classi fied by WHO criter ia. Page 1 [facility] [place] [address] Patien t Name: KATRINA AGUIRRE Access ion #: [id number] Sex: F : 1944 2 Dictat ed By: Mirella Ann Attend ing Physic thania: [facility] Physic thania: SANTO KWONG Exam Date: 2023 14:18 PM Exam Name: XR DEXA-H IPS PELVIS SPINE Admitt ing Diagno sis(es ): -1.0: normal <-1.0 to >-2.5: osteop enia -2.5: osteop orosis -2.5 plus fragil ity fractu re: severe osteop orosis Z-scor e: compar ed by SD to an age, sex, and ethnic ity popula tion (used for premen opausa l women, men <50 years, and childr en instea d of T-scor e WHO criter ia 4) <-2.0: below expect ed range/ low bone densit y for age, and a cause should be sought Electr onical ly Signed by: Mirella Ann at 2023 15:55: 32 PM Page 2 [facility] (Imaging) [address] [place], [address], 03/05/2024 16:56:43 03/05/20 24 03/05/2024 imagi ng/di agnos tic resul t No observ ation record ed. [facility] [address] [place], [address], 03/05/2024 16:58:58 04/13/20 24 04/13/2024 imagi ng/di agnos tic resul t No observ ation record ed. [facility] [address] [place], [address], 04/13/2024 17:33:09 Result Notes None recorded. Problems Name Problem SNOMED Code Status Onset Date Resolution Date Notes Provider Name and Address Organization Details Recorded Time Hypercholeste rolemia 73421927 Active 2018 Not Available [facility] 4 11:31:00 Mammography abnormal 568122424 Active 2021 Not Available [facility] 4 11:31:00 Pleuritic pain 7110581 Active Not Available [facility] 4 11:31:00 Hypertensive disorder 59182415 Active 2018 Not Available [facility] 4 11:31:01 Cat scratch injury 792724935 Active 2020 Not Available [facility] 4 11:31:01 Obesity 468321603 Active 2018 Not Available [facility] 4 11:31:01 Diabetic peripheral neuropathy 012123479 Active 2018 Not Available [facility] 4 11:31:01 Hyperlipidemi a 43838978 Active Not Available [facility] 4 11:31:01 Essential hypertension 41763992 Active Not Available [facility] 4 11:31:01 Diabetes mellitus 16839904 Active Not Available [facility] 4 11:31:01 Dystrophia unguium 61335887 Active 2018 Not Available [facility] 4 11:31:01 Well controlled type 2 diabetes mellitus 223830260 Active 2022 Not Available [facility] 4 11:31:01 Dyslipidemia 401734633 Active 2022 Not Available [facility] 4 11:31:00 Type 2 diabetes mellitus without complication 836756381 Active 2022 Not Available [facility] 4 11:31:00 Heart murmur 53462056 Active 2022 Not Available [facility] 4 11:31:01 Skin tag 487646931 Active 2022 Not Available [facility] 4 11:31:00 Mass of soft tissue 544064494 Active 2022 Not Available [facility] 4 11:31:01 Chronic kidney disease 314887827 Active 2022 Not Available [facility] 4 11:31:01 Urinary incontinence 085002561 Active 2023 Tico brown MD [address], [address], [place], [address] , [employer] 4 12:19:01 Low back pain 862903571 Active 2023 Tico brown MD [address], [address], [place], [address] , [employer] 4 19:10:20 Notes:09-01-2017 states had e ye exam December 2016 back/neck problems, eye problems, kidney disease, urinary/bladder/kidney problems, use of blood thinners Problem Notes None recorded. Procedures Surgical History Date Name Laterality Status Provider Name and Address Organization Details Recorded Time 09/28/19 25 Nail Debridement completed Viraj Merlos DPM [address], [address], [place], [address], [employer] [facility] [employer] 10/11/2024 13:56:26 03/01/20 24 Nail Debridement completed Viraj Merlos DPM [address], [address], [place], [address], [employer] 03/01/2024 15:15:27 09/01/19 24 Nail Debridement completed Viraj Merlos DPM [address], [address], [place], [address], [employer] [facility] [employer] 09/01/2023 14:52:48 08/30/19 24 Medicare Wellness CPT Code, subsequent completed Jose Cleary LPN [employer] [facility] [employer] 08/30/2023 13:39:31 03/03/20 23 Nail Debridement completed Viraj Merlos DPM [address], [place], [address], [employer] [facility] [employer] 03/03/2023 15:03:51 01/19/20 23 other completed Ada Dyer MA [employer] [facility] [employer] 02/09/2023 14:18:07 01/15/20 23 Cyst Removal completed Anastasiia Michel [employer] [facility] [employer] 02/07/2023 11:27:50 09/03/19 23 Nail Debridement completed Viraj Merlos DPM [address], [place], [address], [employer] [facility] [employer] 09/02/2022 14:37:15 02/06/20 20 Most Recent Bone Density completed Not Available [facility] 07/14/2022 02:40:31 Appendectomy completed Not Available [facility] 07/14/2022 02:40:33 Imaging Results None recorded. Procedure Notes None recorded. Medical Equipment None Reported. Allergies No known drug allergies Medications Name Sig Start Date Stop Date Status Note LastModified by Organization Details LastModified Time losartan 50 mg tablet TAKE 1 TABLET BY MOUTH EVERY DAY active Not Available Not Available No t Available pioglitaz one 15 mg tablet TAKE 1 TABLET BY MOUTH EVERY DAY active Not Available Not Available No t Available fluconazo le 100 mg tablet TAKE 1 TABLET BY MOUTH EVERY DAY FOR 3 DAYS 02/07 completed Not Available Not Available Not Available prednison e 10 mg tablet Take by oral route. active Not Available Not Available No t Available azithromy christiano 250 mg tablet TK 2 TS PO AT ONCE TODAY THEN TK 1 T PO ONCE D FOR 4 DAYS active Not Available Not Available No t Available clotrimaz ole-betam ethasone 1 %-0.05 % lotion APPLY TO AFFECTED AREA 3 TIMES DAILY FOR 10 DAYS 02/07 completed Not Available Not Available Not Available glipizide 10 mg tablet TAKE 1 TABLET TWICE A DAY 12/12 completed Not Available Not Available Not Available Aspir-Low 81 mg tablet,de layed release Take 1 tablet every day by oral route. active Not Available Not Available No t Available triamcino lone acetonide 0.1 % topical cream APPLY A THIN LAYER TO THE AFFECTED AREA(S) both dorsal feet BY TOPICAL ROUTE 2 TIMES PER DAY active Not Available Not Available No t Available spironola ctone 25 mg tablet TAKE 1 TABLET BY MOUTH EVERY DAY active Not Available Not Available No t Available simvastat in 40 mg tablet TAKE 1 TABLET BY MOUTH DAILY 2024 active Not Available Not Available Not Avai lable glimepiri de 2 mg tablet TAKE 1 TABLETS TWICE A DAY BEFORE MEALS Your patients 11/04 completed Not Available Not Available Not Available glimepiri de 1 mg tablet TAKE UP TO 2 TABLETS BY MOUTH DAILY IN THE MORNING 01/09 completed Not Available Not Available Not Available metformin 1,000 mg tablet TAKE 1 TABLET BY MOUTH TWICE DAILY 10/06 completed Not Available Not Available Not Available lisinopri l 10 mg tablet TAKE 1 TABLET EVERY DAY 06/09 completed Not Available Not Available Not Available polymyxin B sulfate 10,000 unit-trim ethoprim 1 mg/mL eye drops 06/24 completed Not Available Not Available Not Available losartan 25 mg tablet TAKE 1 TABLET BY MOUTH ONCE DAILY 04/13 completed Not Available Not Available Not Available lisinopri l 20 mg-hydroc hlorothia zide 25 mg tablet TAKE 1 TABLET BY MOUTH EVERY DAY 03/09 completed Not Available Not Available Not Available ergocalci ferol (vitamin D2) 1,250 mcg (50,000 unit) capsule TAKE 1 CAPSULE BY MOUTH ONE TIME PER WEEK FOR 90 DAYS active Not Available Not Available No t Available cefuroxim e axetil 500 mg tablet TAKE 1 TABLET BY MOUTH TWICE A DAY FOR 7 DAYS 02/04 completed Not Available Not Available Not Available methylpre dnisolone 4 mg tablets in a dose pack Take 1 dose pk by oral route as directed . 05/31 completed Not Available Not Available Not Available oxybutyni n chloride 5 mg tablet TAKE 1 TABLET BY MOUTH TWICE A DAY FOR 90 DAYS 08/29 completed Not Available Not Available Not Available losartan 100 mg tablet TAKE 1 TABLET BY MOUTH EVERY DAY active Not Available Not Available No t Available metformin ER 500 mg tablet,ex tended release 24 hr TAKE 1 TABLET BY MOUTH DAILY WITH DINNER active Not Available Not Available No t Available Augmentin 500 mg-125 mg tablet Take 1 tablet every 12 hours by oral route before meals for 10 days. active Not Available Not Available No t Available calcitrio l 0.25 mcg capsule TAKE 1 CAPSULE BY MOUTH EVERY OTHER DAY active Not Available Not Available No t Available cyclobenz aprine 5 mg tablet 04/19 completed Not Available Not Available Not Available Vigamox 0.5 % eye drops active Not Available Not Available Not Available Boostrix Tdap 2.5 Lf unit-8 mcg-5 Lf/0.5 mL intramusc ular syringe TO BE ADMINIST ERED BY PHARMACI ST FOR IMMUNIZA TION active Not Available Not Available No t Available magnesium qd 2017 active Not Available Not Available Not Avai lable Vitamin B-12 1 Tablet Daily 2017 active Not Available Not Available Not Avai lable iron 1 Tablet Daily 2017 active Not Available Not Available Not Avai lable Provigil active Not Available Not Avai lable Not Available multivita min 1 Tablet daily 2017 active Not Available Not Available Not Avai lable Durezol 0.05 % eye drops active Not Available Not Available No t Available Prevnar 13 (PF) 0.5 mL intramusc ular syringe INJECT 0.5 ML INTRAMUS CULARLY DIRECTED . active Not Available Not Available No t Available Myrbetriq 25 mg tablet,ex tended release Take 1 tablet every day by oral route for 90 days. 01/09 completed Not Available Not Available Not Available Ilevro 0.3 % eye drops,vivian pension active Not Available Not Available Not Available Fluvirin 45 mcg (15 mcg x 3)/0.5 mL intramusc ular suspensio n ADM 0.5ML UTD active Not Available Not Available No t Available Fluvirin 45 mcg (15 mcg x 3)/0.5 mL intramusc ular suspensio n ADM 0.5ML UTD active Not Available Not Available No t Available Jardiance 25 mg tablet Take 1 tablet every day by oral route in the morning for 90 days. 04/[address] Carrillo as it was expensiv e Not Available Not Available Not Available Trulicity 1.5 mg/0.5 mL subcutane ous pen injector Inject 1.5 mg every week by subcutan eous route in the morning for 30 days. 03/13 completed Not Available Not Available Not Available Trulicity 0.75 mg/0.5 mL subcutane ous pen injector Inject 0.75 mg every week by subcutan eous route in the morning for 14 days. 03/13 completed Not Available Not Available Not Available Fluzone High-Dose 5738-8631 (PF) 180 mcg/0.5 mL intramusc ular syringe TO BE ADMINIST ERED BY [employer] FOR IMMUNIZA TION 06/09 completed Not Available Not Available Not Available Shingrix (PF) 50 mcg/0.5 mL intramusc ular suspensio n, kit TO BE ADMINIST ERED BY [employer] FOR IMMUNIZA TION 09/07 completed Not Available Not Available Not Available Ozempic 0.25 mg or 0.5 mg (2 mg/1.5 mL) subcutane ous pen injector Inject 0.5 mg every week by subcutan eous route in the morning 04/28 completed duplicat e Not Available Not Available Not Available Fluzone High-Dose (PF) 180 mcg/0.5 mL intramusc ular syringe TO BE ADMINIST ERED BY [employer] FOR IMMUNIZA TION 09/07 completed Not Available Not Available Not Available Fluzone High-Dose 2019-20 (PF) 180 mcg/0.5 mL intramusc ular syringe TO BE ADMINIST ERED BY [employer] FOR IMMUNIZA TION 03/15 completed Not Available Not Available Not Available Gvoke HypoPen 2-Pack 1 mg/0.2 mL subcutane ous auto-inje ctor active Not Available Not Available Not Available Fluzone High-Dose Quad (PF) 240 mcg/0.7 mL IM syringe TO BE ADMINIST ERED BY [employer] FOR IMMUNIZA TION 03/13 completed Not Available Not Available Not Available Ozempic 1 mg/dose (4 mg/3 mL) subcutane ous pen injector Inject 1 mL every week by sub-q route for 84 days. active Not Available Not Available No t Available Neuriva Plus Brain Performan ce TAKE 1 TABLET ONCE DAILY 01/09 completed Not Available Not Available Not Available Ozempic 0.25 mg or 0.5 mg (2 mg/3 mL) subcutane ous pen injector Inject 0.5 mg every week by subcutan eous route at dinner 04/19 completed Not Available Not Available Not Available Vitals Date Recorded Body height Body mass index (BMI) Body weight Body temperature Heart rate Systolic blood pressure Diastolic blood pressure Provider Name and Address Organization Details Last Updated DateTime 5 162.56 cm 33.1 kg/m2 30676.3 3 g 97.6 [degF] 78 /min 128 mm[Hg] 62 mm[Hg] EDGAR Mace [employer] [facility] [employer] 5 15:00:48 Date Recorded Body height Body mass index (BMI) Body weight Heart rate Respiratory rate Oxygen saturation Oxygen saturation in Arterial blood by Pulse oximetry Systolic blood pressure Diastolic blood pressure Provider Name and Address Organization Details Last Updated DateTime 5 162.56 cm 33.1 kg/m2 71271.3 3 g 106 /min 14 /min 98 % 98 % 123 mm[Hg] 57 mm[Hg] Nilas Goncalves [employer] 5 14:53:08 Date Recorded Body height Body mass index (BMI) Body weight Body temperature Heart rate Systolic blood pressure Diastolic blood pressure Provider Name and Address Organization Details Last Updated DateTime 4 162.56 cm 34.3 kg/m2 76155.4 7 g 97.2 [degF] 78 /min 120 mm[Hg] 64 mm[Hg] EDGAR Mace [facility] [employer] [facility] 4 14:01:33 Date Recorded Body height Body mass index (BMI) Body weight Heart rate Respiratory rate Oxygen saturation Oxygen saturation in Arterial blood by Pulse oximetry Systolic blood pressure Diastolic blood pressure Provider Name and Address Organization Details Last Updated DateTime 4 162.56 cm 34.3 kg/m2 36409.4 7 g 101 /min 14 /min 98 % 98 % 134 mm[Hg] 65 mm[Hg] Nilsa Goncalves [facility] [employer] [facility] 4 14:36:25 Date Recorded Body height Body mass index (BMI) Body weight Body temperature Heart rate Systolic blood pressure Diastolic blood pressure Provider Name and Address Organization Details Last Updated DateTime 4 162.56 cm 33 kg/m2 62022.7 4 g 97.3 [degF] 84 /min 132 mm[Hg] 62 mm[Hg] EDGAR Mace [facility] [employer] [facility] 4 17:18:52 Social History Question Answer Notes LastModified by Organization Details LastModified Time Tobacco Smoking Status Former Smoker quit 2004 RAYRAY Nunn [facility] [employer] [facility] 04/28/2023 11:40:47 Do You Have An Advance Directive? No Patient Declined Information Stating She Already Has Some. [id number] Information not available 07/14/2022 Are You Blind Or Do You Have Difficulty Seeing? Yes Reading Glasses [email or web address] Information not available 04/28/2023 What Is Your Level Of Caffeine Consumption? Occasional [id number] Information not available 07/14/2022 How Much Tobacco Do You Chew? None [id number] Information not available 07/14/2022 In The 14 Days Before Symptom Onset, Have You Had Close Contact With A Laboratory-conf eliseo CLEARYID-19 While That Case Was Ill? No [email or web address] Information not available 04/28/2023 In The 14 Days Before Symptom Onset, Have You Had Close Contact With A Person Who Is Under Investigation For COVID-19 While That Person Was Ill? No [email or web address] Information not available 04/28/2023 Are You Deaf Or Do You Have Serious Difficulty Hearing? No [email or web address] Information not available 04/28/2023 What Type Of Diet Are You Following? REGULAR [id number] Information not available 07/14/2022 Which Illicit Or Recreational Drugs Have You Used? None Information not available 04/28/2023 What Is The Highest Grade Or Level Of School You Have Completed Or The Highest Degree You Have Received? [id number] [email or web address] Information not available 04/28/2023 Have There Been Any Changes To Your Family Or Social Situation? No [email or web address] Information not available 04/28/2023 What Is The Fluoride Status Of Your Home? Unknown [email or web address] Information not available 04/28/2023 When Did You Quit Smoking? 16+yearssincelastc igarette [email or web address] Information not available 04/28/2023 Are There Any Guns Present In Your Home? No [email or web address] Information not available 04/28/2023 Do You Use Insect Repellent Routinely? No Information not available 04/28/2023 Where Do You Live? SingleLevelHouse [email or web address] Information not available 04/28/2023 Are You Able To Care For Yourself? Yes [email or web address] Information not available 08/30/2023 Are You Blind Or Do Yo Have Difficulty Seeing? No [email or web address] Information not available 08/30/2023 Are You Deaf Or Do You Have Serious Difficulty Hearing? No [email or web address] Information not available 08/30/2023 Live Alone Of With Others? Alone [email or web address] Information not available 08/30/2023 Do You Have A Medical Power Of Slate Cutter? No [email or web address] Information not available 04/28/2023 What Was The Date Of Your Most Recent Tobacco Screening? 05/31/2024 [email or web address] Information not available 05/31/2024 Do You Have Any Pets? Yes 2 Cats [email or web address] Information not available 08/30/2023 What Is Your Relationship Status? [id number] Information not available 07/14/2022 Do You Use Your Seat Belt Or Car Seat Routinely? Yes [email or web address] Information not available 04/28/2023 Do You Have Smoke And Carbon Monoxide Detectors In Your Home? Yes [email or web address] Information not available 04/28/2023 At What Age Did You Start Smoking Tobacco? 23 [email or web address] Information not available 04/28/2023 Are You Passively Exposed To Smoke? No Information not available 04/28/2023 Are There Any Smokers In Your House? No [email or web address] Information not available 04/28/2023 How Much Tobacco Do You Smoke? No [id number] Information not available 07/14/2022 Do You Use Sunscreen Routinely? No [email or web address] Information not available 04/28/2023 Has Tobacco Cessation Counseling Been Provided? No Information not available 04/28/2023 Have You Recently Traveled Abroad? No [email or web address] Information not available 04/28/2023 Do You Have Difficulty Walking Or Climbing Stairs? No [email or web address] Information not available 04/28/2023 Do You Have Any Dietary Restrictions? No [email or web address] Information not available 04/28/2023 Sex: Female Functional Status Question Answer Note LastModified by Organizat ion Details LastModified Time Do you or have you ever used smokeless tobacco? Never used smokeless tobacco [id number] Information not available 07/14/2022 Are you currently employed? No [email or web address] Information not available 08/30/2023 Do you have transportation difficulties? No [email or web address] Information not available 04/28/2023 Are you able to care for yourself? Yes [email or web address] Information n ot available 04/28/2023 Do you have difficulty dressing or bathing? No Information not available 04/28/2023 Do you or have you ever used e-cigarettes or vape? Never used electronic cigarettes [email or web address] Information not available 04/28/2023 What is your exercise level? Occasional [id number] Information not available 07/14/2022 Do you use any illicit or recreational drugs? No [email or web address] Information not available 04/28/2023 Do you or have you ever used any other forms of tobacco or nicotine? No [email or web address] Information not available 04/28/2023 What is your level of alcohol consumption? None [id number] Information not available 07/14/2022 Are you able to walk? [email or web address] Information not available 04/28/2023 Do you have difficulty doing errands alone? No [email or web address] Information not available 04/28/2023 What is your occupation? retired [email or web address] Information not available 04/28/2023 Mental Status Question Answer Note LastModified by Organizat ion Details LastModified Time Do you feel stressed (tense, restless, nervous, or anxious, or unable to sleep at night)? [id number] [email or web address] Information not available 04/28/2023 Do you have difficulty concentrating, remembering or making decisions? No [email or web address] Information no t available 04/28/2023 Family History Relationship Description Onset Age of this Age Resolved Age Notes LastModified by Organization Details LastModified Time Father No current problems or disability [email or web address] Not available 10/06 10:51:24 Mother No current problems or disability [email or web address] Not available 10/06 10:51:24 Medical History Condition Response BLINDNESS N NERVE DISEASE Y RHEUMATIC FEVER N BLADDER PROBLEMS N KIDNEY STONES N MRSA N OTHER # 1 N POLIO N LUNG DISEASE/DISORDER N HISTORY OF DRUG ABUSE N RADIATION / CHEMOTHERAPY N COPD N Other # 2 N BLOOD DISEASES N EAR OR HEARING PROBLEMS N MUMPS N SHINGLES N DEPRESSION (INCLUDING POST ) N BOWEL PROBLEMS N STROKE/TIA N ULCERS N BENIGN PROSTATIC HYPERPLASIA N MEASLES N HYPOTENSION N MYOCARDIAL INFARCTION N OBESITY N GERD/NAUSEA N ANEURYSM N URINARY/BLADDER/KIDNEY PROBLEMS N CORONARY ARTERY DISEASE (CAD) N ADDICTION CONCERNS N ENDOMETRIOSIS N Impotence N USE OF BLOOD THINNERS N SKIN PROBLEMS N GASTROINTESTINAL DISORDER N PERIPHERAL VASCULAR DISEASE N MUSCLE,JOINT OR BONE PROBLEMS N GASTROINTESTINAL BLEEDING N BLOOD CLOTS N ASTHMA N CATARACTS N ERECTILE DYSFUNCTION N VARICOSITIES N GI PROBLEMS N Low Testosterone N INFERTILITY N AIDS/HIV N CHEMOTHERAPY / RADIATION N LIVER DISEASE N MALE HYPOGONADISM N HYPERTENSION Y Deficiency Y TOURETTE'S N ANXIETY DISORDER N BLOOD TRANSFUSION N ANEMIA/BLOOD DISORDER N CHRONIC EAR INFECTIONS N BRONCHITIS N TUBERCULOSIS N GLAUCOMA N FOOT PROBLEM N DIVERTICULITIS N CHICKENPOX N SLEEP APNEA N INFECTIOUS DISEASE N HEART ARRHYTHMIA N PROSTATE N INSOMNIA N HIGH CHOLESTEROL / HYPERLIPIDEMIA Y HYPERTHYROIDISM N EYE PROBLEMS Y EDEMA N CHRONIC PAIN SYNDROME N HYPOTHYROIDISM N CAROTID BLOCKAGE N CONSTIPATION N BACK / NECK PROBLEMS Y HAVE YOU BEEN HOSPITALIZED OR SEEN IN [facility] IN THE PAST YEAR ? N ATHEROSCLEROSIS N BREAST PROBLEMS N DIALYSIS N ECZEMA N OSTEOPOROSIS N ARTHRITIS N APPENDICITIS N DIABETES, TYPE Y BAD TEETH N ENT N HEARTBURN / REFLUX N AUTISM SPECTRUM DISORDER (ASD) N HEPATITIS / LIVER DISEASE N GOUT N SLEEP DISORDER N ALZHEIMER'S DISEASE N Brain Problems N HERPES N DEMENTIA N HEADACHES/MIGRAINES N SEIZURES/EPILEPSY N VASCULAR DISEASE N PACEMAKER N Blood Disorder N DIZZINESS N HEART DISEASE/HEART PROBLEMS Y KIDNEY DISEASE Y MULTIPLE SCLEROSIS N CARDIAC ARRHYTHMIA N CANCER: SPECIFY N ATRIAL FIBRILLATION N Gall Stones N PULMONARY EMBOLISM N AUTOIMMUNE DISEASE N Gynecological History Statement/Question Response Date of Last Pap Date of Last Mammogram 02/27/2021 Date of Last Colonoscopy Most Recent Bone Density 02/06/2020 Obstetrics History GPAL:G 0 P 0 0 0 0 Immunizations Vaccine Type Date Status Note Provider Nam e and Address Organization Details Recorded Time COVID-19, mRNA, LNP-S, PF, 30 mcg/0.3 mL dose 1 completed Not Available [facility] 06/21/2023 11:31:02 COVID-19, mRNA, LNP-S, PF, 30 mcg/0.3 mL dose 1 completed Not Available [facility] 06/21/2023 11:31:02 COVID-19, mRNA, LNP-S, PF, 30 mcg/0.3 mL dose 1 completed Not Available [facility] 06/21/2023 11:31:02 Influenza, high-dose, trivalent, PF 1 completed Not Available [facility] 06/21/2023 11:31:02 Influenza, high-dose, trivalent, PF 9 completed Not Available [facility] 06/21/2023 11:31:02 influenza, unspecified formulation 8 completed Not Available [facility] 06/21/2023 11:31:02 influenza, unspecified formulation 7 completed Not Available [facility] 06/21/2023 11:31:02 Influenza, high-dose, trivalent, PF 4 completed Not Available [facility] 06/21/2023 11:31:03 Pneumococcal conjugate PCV 13 4 completed Not Available [facility] 06/21/2023 11:31:02 Influenza, high-dose, trivalent, PF 0 completed Not Available [facility] 06/21/2023 11:31:02 Tdap 9 completed Not Available [facility] 06/21/2023 11:31:02 Influenza, high-dose, trivalent, PF 3 completed Not Available [facility] 06/21/2023 11:31:02 pneumococcal polysaccharide PPV23 8 completed Not Available [facility] 06/21/2023 11:31:02 Influenza, high-dose, trivalent, PF 6 completed Not Available [facility] 06/21/2023 11:31:03 Influenza, split virus, quadrivalent, PF 5 completed Not Available [facility] 06/21/2023 11:31:03 Influenza, adjuvanted, quadrivalent, PF 3 completed Not Available [facility] 06/21/2023 11:31:02 COVID-19, mRNA, LNP-S, PF, david-sucrose, 30 mcg/0.3 mL 3 completed Not Available [facility] 06/21/2023 11:31:02 Past Encounters Encounter ID Performer Location Encounter Start Date Encounter Closed Date Diagnosis/Indication Diagnosis SNOMED-CT Code Diagnosis ICD10 Code Diagnosis Note [id number] MD LESLEY Quijano_[facility] [address] [place] [address] 08/08/2020 00:00:00 08/08/2020 13:15:05 [id number] MD LESLEY Garcia_[facility] [address] [place] [address] [address] [place] [address] 11/04/2020 00:00:00 11/13/2020 09:53:58 [id number] Mildred Carrillo MD _ATHSKYLAR_M IGRATION_ DEFAULT_1 _1 , 02/12/2021 00:00:00 02/12/2021 13:27:24 [id number] Viraj Merlos DPM S_[facility] [place] [address] [place] [id number] 02/19/2021 00:00:00 02/19/2021 15:24:04 [id number] Tico brown MD S_[facility]G Internal Med [facility] [address] 1 04/02/2021 00:00:00 04/02/2021 15:01:13 [id number] MD LOUISE Quijano IGRATION_ DEFAULT_1 _1 , 08/13/2021 00:00:00 08/13/2021 13:28:50 [id number] Tico brown MD S_[facility]G Internal [facility] [address] [address] 08/13/2021 00:00:00 08/13/2021 14:53:17 [id number] GISEL EspitiaS_[facility] [place] [address] [place] [id number] 08/27/2021 00:00:00 08/27/2021 14:37:12 [id number] Tico brown MD S_[facility] Internal [facility] [address] [address] 02/04/2022 00:00:00 02/04/2022 18:11:55 [id number] MD LOUISE Quijano IGRATION_ DEFAULT_1 _1 , 02/18/2022 00:00:00 02/18/2022 13:46:14 [id number] Viraj Merlos DPM [facility] [address] [address] 02/25/2022 00:00:00 02/25/2022 14:12:49 [id number] Viraj Merlos DPM [facility] [place] [address] [place] [id number] 09/02/2022 14:09:22 09/02/2022 14:55:20 Diabetic peripheral neuropathy [id number] E11.40 Patient educated on neuropathy , diabetes, diabetic diet, and daily foot exams. Patient is to check feet daily for new wounds, blisters, redness to prevent infection and ulceration s to the feet. Patient will return to clinic in 6 months for diabetic foot workup. Dystrophia unguium 87536 009 L60.3 Nails 1 through 10 were debrided with sharp mechanical debridemen t without incident. Nails were debrided and greater than 50% length and thickness where needed. [id number] Mildred Carrillo MD [facility] [address] [place] [address] 10/06/2022 10:40:17 10/06/2022 11:27:26 Well controlled type 2 diabetes mellitus [id number] E11.9 a1c of 6.7%- will transition to low dose metformin for better tolerabili ty. Continue glimepirid e scale. Continue ozempic 0.5 mg once weekly- patient is tolerating well- patient is paying high amounts even with insurance coverage- provided TLBX.me oscar patient assistance paperwork for patient to complete for coverage. Patient should not have to pay out of pocket and should not have to pay out of pocket for this. Recommende d she incorporat e natural insulin [employer] principal s such as pears, apples, cinnamon, kin and sweet potatoes to help mobilize her endogenous insulin. Recommende d up to 150 minutes of moderate level activity/e xercise weekly. Dyslipidemia [id number] E 78.5 Continue on statin therapy as LDL in ideal range- thyroid in range. Spent up to 28 minutes preparing to see the patient (eg, review of tests), obtaining and/or reviewing separately obtained history, performing a medically appropriat e examinatio n and evaluation , counseling and educating the patient, ordering medication s, tests, along with documentin g clinical informatio n in the electronic health record, independen tly interpreti ng results and communicat ing results to the patient. RTC in 4-6 months. Patient was provided a handwritte n lab order which contains our fax number. If she chooses to go outside of the [place] [facility] system to obtain labwork she was advised to provide our fax number and my informatio n to the lab she will be obtaining labwork from in order to have her labs properly forwarded over for me to review so there is no loss of follow up due to use of outside network. She was also advised to contact our clinic informing us that she has completed her labwork so we are aware we will need to reach out to the appropriat e laboratory to request her results be forwarded to us so I might have the ability to review and make further medical decision making in her case. She voiced understand ing. [id number] Tico brown MD [facility] [place] [address] [facility] [place] [address] [place] [address] 10/21/2022 12:19:47 10/21/2022 13:02:57 Screening - NAD [id number] Z13.9 C-scope: Declines and understand s the risks for CRCCologua rd 12/01/17: NegCologua rd 12/19/2020 : Neg Mammogram: 02/04/17, neg, 02/06/18: Neg 9: Neg 020: Neg 021: Neg 022: Birads 0, US L breast 04/13/2022 : Neg Does not do PAP DEXA: Neg 09/08/17Ne g 02/06/2020 Dexa 03/01/2022 : Neg UTD on flu shotUTD on pneumovax #13, #23 06/09/17UT D on shingles [facility] [place], [place] : TdapUTD on COVID 19 vaccine RTC in 4 monthsdo labsER if worseshe did verbalize her understand ing of the above 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 complication [id number] E11.9 On glimepirid e 2mg daily, will d/c thisOn metformin 1000mg bidOn ozempicGet labs Dr Carrillo 10/06/2022 , next 02/07/2023 Dr Merlos: 03/03/2023 [facility] eye care: 03/30/2021 no retinopath y, next apt in one year Essential hypertension [id number] I10 On ASAOn losartan 50mg dailyGet labs Hyperlipidemia 52016386 E78.5 On simvastati n 40mg dailyGet labs Heart murmur [id number] R0 1.1 ECHO: 11/29/16: N LV Sx fx, impaired LV relaxation with EF 0%RA mildly enlarged, mild MR, TR, VT Sees [facility] Dr Ocampo 06/16/2020 next in one year Adult heal th examination [id number] Z00.00 Depression screening 171 682188 Z13.31 [id number] Immanuel linton MD [facility] General Surgery [address] [address] 12/30/2022 10:41:45 12/30/2022 14:26:57 Mass of soft tissue 189485392 R22.9 scalp [id number] Immanuel linton MD [facility] General Surgery [address] [address] 01/27/2023 10:48:20 01/27/2023 15:32:14 [id number] Mildred Carrillo MD [facility] Endo [place] [address] [place] [address] 02/07/2023 11:03:36 02/07/2023 11:58:02 Well controlled type 2 diabetes mellitus [id number] E11.9 a1c of 7.5% up from 6.7%- continue on low dose metformin for better tolerabili ty. Continue glimepirid e scale but increase to potential to take up to 2 mg before breakfast if premeal over 150 mg/dL. Continue ozempic 0.5 mg once weekly- patient is tolerating well. Recommende d she incorporat e natural insulin [employer] principal s such as pears, apples, cinnamon, kin and sweet potatoes to help mobilize her endogenous insulin. Recommende d up to 150 minutes of moderate level activity/e xercise weekly. Dyslipidemia [id number] E 78.5 Continue on statin therapy as LDL in ideal range- thyroid in range. Spent up to 25 minutes preparing to see the patient (eg, review of tests), obtaining and/or reviewing separately obtained history, performing a medically appropriat e examinatio n and evaluation , counseling and educating the patient, ordering medication s, tests, along with documentin g clinical informatio n in the electronic health record, myen tly interpreti ng results and communicat ing results to the patient. Patient can be followed by PCP - she/he is aware of my resignatio n and last day of February 25. If needed his/her PCP can refer patient to another endocrinol ogist in the area. All questions /concerns answered and refills necessary at visit today. [id number] Viraj Merlos DPM [facility] Podiatry [place] [address] [facility] [address] [place] [address] 03/03/2023 14:18:14 03/04/2023 11:38:34 Diabetic peripheral neuropathy [id number] E11.40 Patient educated on neuropathy , diabetes, diabetic diet, and daily foot exams. Patient is to check feet daily for new wounds, blisters, redness to prevent infection and ulceration s to the feet. Patient will return to clinic in 6 months for diabetic foot workup.Dis pensed metatarsal pads for offloading the met heads to see if this will help to reduce sensation of neuropathy Dystrophia unguium 46408 009 L60.3 Nails 1 through 10 were debrided with sharp mechanical debridemen t without incident. Nails were debrided and greater than 50% length and thickness where needed. [id number] Tico brown MD [facility] Internal Med [facility] [address] [facility] [address] [place] [address] 04/28/2023 11:38:57 04/28/2023 12:45:45 Screening - NAD [id number] Z13.9 C-scope: Declines and understand s the risks for CRCCologua rd 12/01/17: NegCologua rd 12/19/2020 : Neg Mammogram: 02/04/17, neg, 02/06/18: Neg 9: Neg 020: Neg 021: Neg 022: Birads 0, US L breast 04/13/2022 : Neg Does not do PAP DEXA: Neg 09/08/17Ne g 02/06/2020 Dexa 03/01/2022 : Neg UTD on flu shotUTD on pneumovax #13, #23 06/09/17UT D [facility] shingles [facility] [place], [facility]05/16/18 : TdapUTD on COVID 19 vaccineCan do RSV vaccine RTC in 4 monthsdo labsER if worseshe did verbalize her understand ing of the above 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 complication [id number] E11.9 On glimepirid e 2mg daily, will d/c thisOn metformin 1000mg bidOn ozempicGet labs Dr Carrillo 02/07/2023 Dr Merlos: 03/03/2023 [facility] eye [facility] Essential hypertension 84900860 I10 On ASAOn losartan 50mg dailyGet labs Hyperlipidemia 12747353 E78.5 On simvastati n 40mg dailyGet labs Heart murmur 07946989 R0 1.1 ECHO: 11/29/16N LV Sx fx, impaired LV relaxation with EF 0%RA mildly enlarged, mild MR, TR, VT ECHO 11/08/2022 : EF 60% [facility] Dr Ocampo 10/25/2022 , next in 6 months, started on spironolac tone 25mg daily Chronic ki dney disease 575971106 N18.9 Dr Ocampo IJ 04/05/2023 [id number] Tico brown MD [facility] Internal Med [facility] [address] [facility], [address] [address] 08/30/2023 11:56:33 08/30/2023 12:53:04 Screening - NAD [id number] Z13.9 C-scope: Declines and understand s the risks for CRCCologua rd 12/01/17: NegCologua rd 12/19/2020 : Neg Mammogram: 02/04/17, neg, 02/06/18: Neg 9: Neg 020: Neg 021: Neg 022: Birads 0, US L breast 04/13/2022 : Neg Does not do PAP DEXA: Neg 09/08/17Ne g 02/06/2020 Dexa 03/01/2022 : Neg UTD on flu shotUTD on pneumovax #13, #23 06/09/17UT D [facility]ingles [facility] [place] [place] : TdapUTD on COVID 19 vaccineCan do RSV vaccine RTC in 4 monthsdo labsER if worseshe did verbalize her understand ing of the above 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 complication [id number] E11.9 On glimepirid e 2mg daily, will d/c thisOn metformin ER 500mg daily, not taking 1000mg bidOn ozempic 0.5mg weekly, does well, has noted some constipati on 08/30/2023 but takes metamucil for thisGet labs Dr Carrillo 02/07/2023 Dr Merlos: 03/03/2023 [facility] Essential hypertension 25846443 I10 On ASAOn losartan 50mg dailyGet labs Hyperlipidemia 13565631 E78.5 On simvastati n 40mg dailyGet labs Heart murmur 60310793 R0 1.1 ECHO: 11/29/16N LV Sx fx, impaired LV relaxation with EF 0%RA mildly enlarged, mild MR, TR, VT ECHO 11/08/2022 : EF 60% [facility] Dr Ocampo 10/25/2022 , next in 6 months, started on spironolac tone 25mg daily Chronic ki dney disease 183439132 N18.9 Dr Adelfo OROZCO 04/05/2023 Urinary incontinence 165 116452 R32 On oxybutynin 5mg bid, given by Dr Adelfo OROZCO, will d/c this as it has caused her to get dry mouth and fatigue, will start on myrbetriq and see if this helps if not will need to see urology Adult [facility] th examination 816830807 Z00.00 Screening for disorder 074270010 Z13.9 [id number] Viraj Merlos DPM [facility] Podiatry [place] [address] [facility] [address] [place] [address] 09/01/2023 14:12:53 09/01/2023 14:56:59 Diabetic peripheral neuropathy 385613406 E11.40 Patient educated on neuropathy , diabetes, diabetic diet, and daily foot exams. Patient is to check feet daily for new wounds, blisters, redness to prevent infection and ulceration s to the feet. Patient will return to clinic in 6 months for diabetic foot workup. Dystrophia unguium 32090 009 L60.3 Nails 1 through 10 were debrided with sharp mechanical debridemen t without incident. Nails were debrided and greater than 50% length and thickness where needed. [id number] Tico brown MD [facility] Internal Med [facility] [address] [facility] [place] [address] 01/10/2024 13:49:52 01/10/2024 14:35:04 Screening - NAD [id number] Z13.9 C-scope: Declines and understand s the risks for CRCCologua rd 12/01/17: NegCologua rd 12/19/2020 : Neg Mammogram: 02/04/17, neg, 02/06/18: Neg 9: Neg 020: Neg 021: Neg 022: Birads 0, US L breast 04/13/2022 : NegDecline d 01/10/2024 , denies any complaints , advised to do SBE Does not do PAP DEXA: Neg 09/08/17Ne g 02/06/2020 Dexa 03/01/2022 : Neg UTD on flu shotUTD on pneumovax #13, #23 06/09/17[place] [facility] [place] : TdapUTD on COVID 19 vaccineCan do RSV vaccine RTC in 4 monthsdo labsER if worseshe did verbalize her understand ing of the above 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 complication 133598600 E11.9 On glimepirid e 2mg daily, but takes only one per day, may take bid if the ACCU is more than 150 as per her history 01/10/2024 On metformin ER 500mg dailyOn ozempic 0.5mg weekly, does well, has noted some constipati on 08/30/2023 but takes metamucil for thisGet labs Dr Carrillo 02/07/2023 Dr Merlos: 03/03/2023 [facility] eye care Essential hypertension 18916374 I10 On ASAOn losartan 50mg dailyGet labs Hyperlipidemia 96309686 E78.5 On simvastati n 40mg dailyGet labs Heart murmur 84175306 R0 1.1 ECHO: 11/29/16N LV Sx fx, impaired LV relaxation with EF 0%RA mildly enlarged, mild MR, TR, VT ECHO 11/08/2022 : EF 60% [facility] Dr Ocampo 10/25/2022 , next in 6 months, started on spironolac tone [facility] Dr Ocampo 12/06/2023 , next in 6 months Chronic ki dney disease 814794810 N18.9 On calcitriol On vit d weekly Dr Adelfo OROZCO 04/05/2023 Urinary incontinence 165 870875 R32 On oxybutynin 5mg bid, given by Dr Adelfo OROZCO, will d/c this as it has caused her to get dry mouth and fatigue, will start on myrbetriq and see if this helps if not will need to see urology OV 01/10/2024 : Does not want any referrals and is not taking the Myrbetriq Screening for malignant neoplasm of colon 068615571 Z12.11 Screening for osteoporosis 230626315 Z13.943 [id number] Viraj Merlos DPM [facility] Podiat[facility] [place] [address] [facility] [address] [place] [address] 03/01/2024 14:32:08 03/02/2024 11:55:10 Diabetes mellitus 03060620 E11.9 Patient educated on neuropathy , diabetes, diabetic diet, and daily foot exams. Patient is to check feet daily for new wounds, blisters, redness to prevent infection and ulceration s to the feet. Patient will return to clinic in 3 months for diabetic foot workup. Dystrophia unguium 57302 009 L60.3 Nails 1 through 10 were debrided with sharp mechanical debridemen t without incident. Nails were debrided and greater than 50% length and thickness where needed. [id number] Tico brown MD [facility] Internal Med [facility] [address] [facility] [address] [place] [address] 04/19/2024 17:05:42 04/19/2024 17:52:59 Screening - NAD 563985586 Z13.9 C-scope: Declines and understand s the risks for CRCCologua rd 12/01/17: NegCologua rd 12/19/2020 : Neg Mammogram: 02/04/17, neg, 02/06/18: Neg 9: Neg 020: Neg 021: Neg 022: Birads 0, US L breast 04/13/2022 : NegDecline d 01/10/2024 , denies any complaints , advised to do SBE Does not do PAP DEXA: Neg 09/08/17Ne g 02/06/2020 Dexa 03/01/2022 : Neg UTD on flu shotUTD on pneumovax #13, #23 06/09/17[place] [facility] [facility] [place] : TdapUTD on COVID 19 vaccineCan do RSV vaccine RTC in 4 monthsdo labsER if worseshe did verbalize her understand ing of the above 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 complication 906304450 E11.9 On glimepirid e 2mg daily, but takes only one per day, may take bid if the ACCU is more than 150 as per her history 01/10/2024 On metformin ER 500mg dailyOn ozempic 1mg weekly, does well, has noted some constipati on 08/30/2023 but takes metamucil for thisGet labs Dr Carrillo 02/07/2023 Dr Merlos: 03/03/2023 [facility] eye care Essential hypertension 34155530 I10 On ASAOn losartan 50mg dailyOn spironolac tone 25mg dailyGet labs Hyperlipidemia 11726126 E78.5 On simvastati n 40mg dailyGet labs Heart murmur 96036765 R0 1.1 ECHO: 11/29/16N LV Sx fx, impaired LV relaxation with EF 0%RA mildly enlarged, mild MR, TR, VT ECHO 11/08/2022 : EF 60% [facility] Dr Ocampo 10/25/2022 , next in 6 months, started on spironolac tone 25mg daily[facility] Dr Ocampo 12/06/2023 , next in 6 months Chronic ki dney disease 624232944 N18.9 On calcitriol On vit d weekly Dr Adelfo OROZCO 04/05/2023 Urinary incontinence 165 572867 R32 On oxybutynin 5mg bid, given by Dr Adelfo OROZCO, will d/c this as it has caused her to get dry mouth and fatigue, will start on myrbetriq and see if this helps if not will need to see urology OV 01/10/2024 : Does not want any referrals and is not taking the Myrbetriq Screening for malignant neoplasm of colon 974596318 Z12.11 Screening for osteoporosis 957620225 Z13.820 Low back pain 727217863 M54.50 S/p Xray 04/13/2024 done at the Can start on PT to eval and treat and also keep on the muscle relaxer as needed given by the , also start on MDPIf not better may need to see pain management [id number] Tico brown MD [facility] Internal Med [facility] [address] [facility], [facility] [address] [place] [address] 05/31/2024 14:36:45 05/31/2024 15:48:59 Screening - NAD 028897245 Z13.9 C-scope: Declines and understand s the risks for CRCCologua rd 12/01/17: NegCologua rd 12/19/2020 : NegDecline s any cologuard Mammogram: 02/04/17, neg, 02/06/18: Neg 9: Neg 020: Neg 021: Neg 022: Birads 0, US L breast 04/13/2022 : NegDecline d 01/10/2024 , denies any complaints , advised to do SBE Does not do PAP DEXA: Neg 09/08/17Ne g 02/06/2020 Dexa 03/01/2022 : NegDEXA: 03/05/2024 : Neg UTD on flu shotUTD on pneumovax #13, #23 06/09/17UT D [facility] [place] : TdapUTD on COVID 19 vaccineCan do RSV vaccine RTC in 4 monthsdo labsER if worseshe did verbalize her understand ing of the above 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 complication 139801177 E11.9 On glimepirid e 2mg daily, but takes only one per day, may take bid if the ACCU is more than 150 as per her history 01/10/2024 On metformin ER 500mg dailyOn ozempic 1mg weekly, does well, has noted some constipati on 08/30/2023 but takes metamucil for thisGet labs Dr Carrillo 02/07/2023 Dr Merlos: 03/03/2023 [facility] careIs to [facility] Dr Orozco in 07/2024 as per her history Essential hypertension 58505996 I10 On ASAOn losartan 50mg dailyOn spironolac tone 25mg dailyGet labs Hyperlipidemia 19764156 E78.5 On simvastati n 40mg dailyGet labs Heart murmur 83627982 R0 1.1 ECHO: 11/29/16N LV Sx fx, impaired LV relaxation with EF 0%RA mildly enlarged, mild MR, TR, VT ECHO 11/08/2022 : EF 60% [facility] Dr Ocampo 10/25/2022 , next in 6 months, started on spironolac tone 25mg dailySL[facility] Dr Ocampo 12/06/2023 , next in 6 months Chronic ki dney disease 894460146 N18.9 On calcitriol On vit d weekly Dr Adelfo OROZCO 04/05/2023 Urinary incontinence 165 050930 R32 On oxybutynin 5mg bid, given by Dr Adelfo OROZCO, will d/c this as it has caused her to get dry mouth and fatigue, will start on myrbetriq and see if this helps if not will need to see urology OV 01/10/2024 : Does not want any referrals and is not taking the Myrbetriq Screening for osteoporosis 982019464 Z13.820 Low back pain 292446303 M54.50 S/p Xray 04/13/2024 done at the Can start on PT to eval and treat and also keep on the muscle relaxer as needed given by the , also start on MDPIf not better may need to see pain management [id number] Viraj Merlos DPM [facility] [place] [address] [facility] [address] [place] [address] 09/27/2024 14:43:45 10/11/2024 13:56:50 Diabetes mellitus 11835561 E11.9 Patient educated on neuropathy , diabetes, diabetic diet, and daily foot exams. Patient is to check feet daily for new wounds, blisters, redness to prevent infection and ulceration s to the feet. Patient will return to clinic in 3 months for diabetic foot workup. Diabetic p eripheral neuropathy 739268488 E11.40 Patient educated on neuropathy , diabetes, diabetic diet, and daily foot exams. Patient is to check feet daily for new wounds, blisters, redness to prevent infection and ulceration s to the feet. Patient will return to clinic in 6 months for diabetic foot workup. Dystrophia unguium 61737 009 L60.3 Nails 1 through 10 were debrided with sharp mechanical debridemen t without incident. Nails were debrided and greater than 50% length and thickness where needed. Health Concerns Section Related Observation LastModified by Organization Detai ls LastModified Time None Recorded Concern Status LastModified by Organization Details LastModified Time None Recorded Advance Directives Directive N: Patient declined informat ion stating she already has some. Payers Encounter Date Sequence Insurance Name Policy Number Policy An Covered Member ID An Member ID Guarantor Name 01/10/2024 1 [facility] (MEDICARE REPLACEMENT/A DVANTAGE - HMO) [id number] Kylah Aguirre [id number] Kylah Aguirre 03/01/2024 1 [facility] (MEDICARE REPLACEMENT/A DVANTAGE - HMO) [id number] Kylah Aguirre [id number] Kylah Aguirre 04/19/2024 1 [facility] (MEDICARE REPLACEMENT/A DVANTAGE - HMO) [id number] Kylah Aguirre [id number] Kylah Aguirre 05/31/2024 1 [facility] (MEDICARE REPLACEMENT/A DVANTAGE - HMO) [id number] Kylah Aguirre [id number] Kylah Aguirre 09/27/2024 1 [facility] (MEDICARE REPLACEMENT/A DVANTAGE - HMO) [id number] Kylah Aguirre [id number] Kylah Aguirre Notes Date Note Type Note Provider Name and Address Organization Details Recorded Time 01/10/2024 text/html Here to yamileth Argueta Hx:DMIIHTNHLDReviewed her social, family and surgical historyStates that she is doing well, here to get her refills and labs.OV 06/09/17:Here for her routine 6 months appointmentStates that she did do the labs on 06/06/17 and is doing wellShe states that she is not on the lisinopril or the HCTZOV 09/01/17:Here for her routine aptShe is also here for her MWVShe did do the labs and is here to review these OV 12/01/17:Here for her routine aptStates that she is doing well at this timeShe did do the labs on 11/22/17 and is here to review theseOV 04/13/18:Here for her routine aptShe did do the labs on 04/11/18 and is here to review these OV 09/07/18:Here for her routine aptShe feels well, she did do the labs also for Dr Ocampo 08/23/18OV 03/15/19:Here for her routine aptShe did do the labs for Dr Ocampo the nephrologistShe feels Haley has seen Dr Carrillo and is now on jardiance alsoOV 09/13/2019:Tele visitShe is agreeable to visitShe is doing Haley did the labs with Dr Ocampo and Dr Carrillo OV 03/13/2020:Here for her routine aptShe has done the labsShe did see Dr Carrillo but is not happy that the ozempic cost and would like to get some samples OV 07/08/2020:Here for her routine aptShe feels very Haley has done her labsOV 11/04/2020:Here for her routine aptShe is doing very wellShe did do the labsShe is here for her MWVOV 04/02/2021:Here for her routine aptShe is doing wellSdinorah did do the labsOV 08/13/2021:Here for her wellness aptShe feels Haley did do the labs on 2OV 02/04/2022:Here for her f/u apt and MWV, she is doing well, and she did have her labs done on 02/01/2022 OV 10/21/2022: Here for her f/u apt, does well today OV 04/28/2023: Here for her f/u apt, she is doing well today, would like to get a medication review done OV 08/30/2023: Here for her f/u apt, she did the labs, has not yet seen Dr Orozco as his office requires the labs and OV note, also has noted dry mouth and fatigue with the oxybutynin that has been given to her by Dr Ocampo IJ, she also continues to take her glimepiride and has cut back on the metformin to once a day OV 01/10/2024: Here for her f/u apt, she is doing well today, she did do the labs Tico Padron MD [address], [address], [place], [address], [employer] 01/10/2024 14:36:09 03/01/2024 text/html . Patient is a 78-year-old female diabetic who returns for diabetic foot care she states overall she is doing well denies any changes denies any intermittent claudication, wounds, foot pain with walking. Viraj Merlos DPM [address], [address], [place], [address], [employer] 03/01/2024 15:23:56 04/19/2024 text/html Here to yamileth Argueta Hx:DMIIHTNHLDReviewed her social, family and surgical historyStates that she is doing well, here to get her refills and labs.OV 06/09/17:Here for her routine 6 months appointmentStates that she did do the labs on 06/06/17 and is doing wellShe states that she is not on the lisinopril or the HCTZOV 09/01/17:Here for her routine aptShe is also here for her MWVShe did do the labs and is here to review these OV 12/01/17:Here for her routine aptStates that she is doing well at this timeShe did do the labs on 11/22/17 and is here to review theseOV 04/13/18:Here for her routine aptShe did do the labs on 04/11/18 and is here to review these OV 09/07/18:Here for her routine aptShe feels well, she did do the labs also for Dr Ocampo 08/23/18OV 03/15/19:Here for her routine aptShe did do the labs for Dr Ocampo the nephrologistShe feels Haley has seen Dr Carrillo and is now on jardiance alsoOV 09/13/2019:Tele visitShe is agreeable to visitShe is doing wellShe did the labs with Dr Ocampo and Dr Carrillo OV 03/13/2020:Here for her routine aptShe has done the labsShe did see Dr Carrillo but is not happy that the ozempic cost and would like to get some samples OV 07/08/2020:Here for her routine aptShe feels very wellShe has done her labsOV 11/04/2020:Here for her routine aptShe is doing very wellShe did do the labsShe is here for her MWVOV 04/02/2021:Here for her routine aptShe is doing wellShe did do the labsOV 08/13/2021:Here for her wellness aptShe feels wellShe did do the labs on 2OV 02/04/2022:Here for her f/u apt and MWV, she is doing well, and she did have her labs done on 02/01/2022 OV 10/21/2022: Here for her f/u apt, does well today OV 04/28/2023: Here for her f/u apt, she is doing well today, would like to get a medication review done OV 08/30/2023: Here for her f/u apt, she did the labs, has not yet seen Dr Orozco as his office requires the labs and OV note, also has noted dry mouth and fatigue with the oxybutynin that has been given to her by Dr Ocampo IJ, she also continues to take her glimepiride and has cut back on the metformin to once a day OV 01/10/2024: Here for her f/u apt, she is doing well today, she did do the labs OV 04/19/2024: Here for her apt to discuss her xray for LBP that she did have at the , was given muscle relaxers, denies any pain with sitting but pain with prolonged standing and walking, no N/T or weakness in the legs, no loss of bowel or bladder control Tico Padron MD [address], [address], [place], [address], [place] [employer] [place] [employer] 04/19/2024 18:33:41 05/31/2024 text/html Here to yamileth Argueta Hx:DMIIHTNHLDReviewed her social, family and surgical historyStates that she is doing well, here to get her refills and labs.OV 06/09/17:Here for her routine 6 months appointmentStates that she did do the labs on 06/06/17 and is doing wellShe states that she is not on the lisinopril or the HCTZOV 09/01/17:Here for her routine aptShe is also here for her MWVShe did do the labs and is here to review these OV 12/01/17:Here for her routine aptStates that she is doing well at this timeShe did do the labs on 11/22/17 and is here to review theseOV 04/13/18:Here for her routine aptShe did do the labs on 04/11/18 and is here to review these OV 09/07/18:Here for her routine aptShe feels well, she did do the labs also for Dr Ocampo 08/23/18OV 03/15/19:Here for her routine aptShe did do the labs for Dr Ocampo the nephrologistShe feels Haley has seen Dr Carrillo and is now on jardiance alsoOV 09/13/2019:Tele visitShe is agreeable to visitShe is doing wellShe did the labs with Dr Ocampo and Dr Carrillo OV 03/13/2020:Here for her routine aptShe has done the labsShe did see Dr Carrillo but is not happy that the ozempic cost and would like to get some samples OV 07/08/2020:Here for her routine aptShe feels very Haley has done her labsOV 11/04/2020:Here for her routine aptShe is doing very wellShe did do the labsShe is here for her MWVOV 04/02/2021:Here for her routine aptShe is doing wellShe did do the labsOV 08/13/2021:Here for her wellness aptShe feels Haley did do the labs on 2OV 02/04/2022:Here for her f/u apt and MWV, she is doing well, and she did have her labs done on 02/01/2022 OV 10/21/2022: Here for her f/u apt, does well today OV 04/28/2023: Here for her f/u apt, she is doing well today, would like to get a medication review done OV 08/30/2023: Here for her f/u apt, she did the labs, has not yet seen Dr Orozco as his office requires the labs and OV note, also has noted dry mouth and fatigue with the oxybutynin that has been given to her by Dr Adelfo OROZCO, she also continues to take her glimepiride and has cut back on the metformin to once a day OV 01/10/2024: Here for her f/u apt, she is doing well today, she did do the labs OV 04/19/2024: Here for her apt to discuss her xray for LBP that she did have at the , was given muscle relaxers, denies any pain with sitting but pain with prolonged standing and walking, no N/T or weakness in the legs, no loss of bowel or bladder control OV 05/31/2024: Here for her f/u apt, she feels well today, she did do the labs on 05/25/2024 Tico Padron MD [address], [address], [place], [address], [employer] 06/11/2024 19:02:06 09/27/2024 text/html . Patient is a 79-year-old female diabetic she returns for routine diabetic foot care she states she continues have numbness and tingling of the feet she denies any recent wounds or infection. Patient states that she has found barefoot running shoes she states that she bought herself a pair of them and likes them. I did discuss the challenges with the shoes and the imposed risks that they can perform secondary to diabetes and neuropathy. Patient denies any other complaints and would like her nails cut. Viraj Merlos DPM [address], [place], [address], [employer] 10/11/2024 13:56:49 OBGyn Episode No OBEpisode recorded.
--- OUTSIDE RECORDS SUMMARY | 2024-10-12 11:15 | XMS_ITS | Patient Health Record ---
Author Organization [facility] Office Address [address] [facility] [address] [facility] [address] [place] [address] Care Team Providers Care Pneumatic Tool Operator Name Role Phone Adelfo Arvin Unavailable [phone] Reason For Referral No Information Medications Medication SIG (Take, Route, Frequency, Duration) Notes Start Date End Date Status Losartan Potassium 50 MG TAKE 1 TABLET B Y MOUTH ONCE DAILY for 100 Active Gabapentin 300 MG 1 capsule Orally Onc e a day for 90 day(s) 04/01/2023 Active Problems Problem Type SNOMED Code ICD Code Onset Dates Problem Status W/U Status Risk Notes Problem Hyperglycemia due to type 2 diabetes mellitus (658809260292203) Type 2 diabetes mellitus with hyperglycemia (E11.65) Active confirmed Problem Hyperlipidemia (30339342) Hyperlipidemia, unspecified (E78.5) Active confirmed Problem Heart failure (21735955) Heart failure, unspecified (I50.9) Active confirmed Problem Chronic kidney disease stage 2 (767490444) Chronic kidney disease, stage 2 (mild) (N18.2) Active confirmed Problem Renal osteodystrophy (31884183) Renal osteodystrophy (N25.0) Active confirmed Problem Essential hypertension (I10) Active confirmed Problem Imaging of genitourinary system abnormal (finding) (028040594) Abnormal radiologic findings on diagnostic imaging of unspecified kidney (R93.429) Active confirmed Encounters Encounter Location Date Provider Diagnosis [place] [facility] [address] [address] 10/21/2023 Arvin Emanuel Chronic kidney disea se, stage 2 (mild) N18.2 ; Type 2 diabetes mellitus with hyperglycemia E11.65 ; Abnormal radiologic findings on diagnostic imaging of unspecified kidney R93.429 ; Heart failure, unspecified I50.9 and Hyperlipidemia, unspecified E78.5 [facility] [address] [address] 01/20/2024 Arvin Emanuel Chronic kidney disea se, stage 2 (mild) N18.2 ; Type 2 diabetes mellitus with hyperglycemia E11.65 ; Renal osteodystrophy N25.0 ; Abnormal radiologic findings on diagnostic imaging of unspecified kidney R93.429 ; Heart failure, unspecified I50.9 and Hyperlipidemia, unspecified E78.5 [facility] [address] [address] 06/08/2024 Arvin Emanuel Chronic kidney disea se, stage 2 (mild) N18.2 ; Type 2 diabetes mellitus with hyperglycemia E11.65 ; Hyperlipidemia, unspecified E78.5 ; Abnormal radiologic findings on diagnostic imaging of unspecified kidney R93.429 and Essential hypertension I10 Assessments Encounter Date Diagnosis (ICD Code) Assessment Notes Treatment Notes Treatment Clinical Notes Section Notes 10/21/2023 Chronic kidney disease, stage 2 (mild) (ICD-10 - N18.2) 01/20/2024 Type 2 diabetes mellitus with hyperglycemia (ICD-10 - E11.65) 01/20/2024 Chronic kidney disease, stage 2 (mild) (ICD-10 - N18.2) 06/08/2024 Type 2 diabetes mellitus with hyperglycemia (ICD-10 - E11.65) 06/08/2024 Chronic kidney disease, stage 2 (mild) (ICD-10 - N18.2) 06/08/2024 Hyperlipidemia, unspecified (ICD-10 - E78.5) 01/20/2024 Renal osteodystrophy (ICD-10 - N25.0) 10/21/2023 Type 2 diabetes mellitus with hyperglycemia (ICD-10 - E11.65) 10/21/2023 Abnormal radiologic findings on diagnostic imaging of unspecified kidney (ICD-10 - R93.429) 01/20/2024 Abnormal radiologic findings on diagnostic imaging of unspecified kidney (ICD-10 - R93.429) 06/08/2024 Abnormal radiologic findings on diagnostic imaging of unspecified kidney (ICD-10 - R93.429) 01/20/2024 Heart failure, unspecified (ICD-10 - I50.9) 06/08/2024 Essential hypertension (ICD-10 - I10) 10/21/2023 Heart failure, unspecified (ICD-10 - I50.9) 10/21/2023 Hyperlipidemia, unspecified (ICD-10 - E78.5) 01/20/2024 Hyperlipidemia, unspecified (ICD-10 - E78.5) Plan Of Treatment Next Appt Details Provider Name:Arvin Emanuel , 10/19/2024 01:00:00 PM, [address] [facility], [facility] [address], [place], [address],
--- OUTSIDE RECORDS SUMMARY | 2024-10-12 11:15 | XMS_ITS ---
Author Organization [facility] Office Address [address] [facility] [address] [facility] [address] [place] [address] Care Team Providers Care Jack Prizer Name Role Phone Arvin Emanuel Unavailable [phone] Medications Medication SIG (Take, Route, Frequency, Duration) Notes Start Date End Date Status Calcitriol 0.25 MCG 1 capsule Orally jessica ry other day for 90 04/01/2023 12/27/2023 Active Gabapentin 300 MG 1 capsule Orally Onc e a day for 90 day(s) 04/01/2023 Active Ergocalciferol 1.25 MG (30127 UT) 1 capsule Orally Once a week for 90 day(s) 04/01/2023 12/27/2023 Active oxyBUTYnin Chloride 5 MG 1 tablet Orally twice a day for 90 days 06/24/2023 03/20/2024 Active Losartan Potassium 50 MG TAKE 1 TABLET B Y MOUTH ONCE DAILY for 100 Active Encounters Encounter Location Date Provider Diagnosis [place] [facility] [address] [facility] [address] [place] [address] 10/21/2023 Arvin Emanuel Chronic kidney disease, stage 2 (mild) N18.2 ; Type 2 diabetes mellitus with hyperglycemia E11.65 ; Abnormal radiologic findings on diagnostic imaging of unspecified kidney R93.429 ; Heart failure, unspecified I50.9 and Hyperlipidemia, unspecified E78.5 Assessments Encounter Date Diagnosis (ICD Code) Assessment Notes Treatment Notes Treatment Clinical Notes Section Notes 10/21/2023 Chronic kidney disease, stage 2 (mild) (ICD-10 - N18.2) 10/21/2023 Type 2 diabetes mellitus with hyperglycemia (ICD-10 - E11.65) 10/21/2023 Abnormal radiologic findings on diagnostic imaging of unspecified kidney (ICD-10 - R93.429) 10/21/2023 Heart failure, unspecified (ICD-10 - I50.9) 10/21/2023 Hyperlipidemia, unspecified (ICD-10 - E78.5) Plan Of Treatment Next Appt Details Provider Name:Arvin Emanuel , 10/19/2024 01:00:00 PM, [address], [facility] [address], [place], [address], Progress Notes * PRINCESS EVANSDOB: 7 (79 yo F)Acc No.[id number]:10/21/2023 Progress Notes Patient: PRINCESS HAYES Provider: Марина CHEATHAM MD, F.A.C.P, F.A.S.N. :1945 A ge:78 Y S ex:Female Date:10/21/2023 Address:[address] [place] [address] [address] [facility] , [place] [address] Subjective: * Chief Complaints: * * Medical History: * Medications: T aking Ergocalciferol 1.25 MG (42723 UT) Capsule 1 capsule Orally Once a week , stop date 12/27/2023, Taking Calcitriol 0.25 MCG Capsule 1 capsule Orally every other day , stop date 12/27/2023, Taking Gabapentin 300 MG Capsule 1 capsule Orally Once a day , Taking oxyBUTYnin Chloride 5 MG Tablet 1 tablet Orally twice a day , stop date 03/20/2024, Taking Losartan Potassium 50 MG Tablet TAKE 1 TABLET BY MOUTH ONCE DAILY Objective: * Vitals: Assessment: * Assessment: 1. C hronic kidney disease, stage 2 (mild) - N18.2 (Primary) 2 . T ype 2 diabetes mellitus with hyperglycemia - E11.65 3 . A bnormal radiologic findings on diagnostic imaging of unspecified kidney - R93.429 4 . H eart failure, unspecified - I50.9 5 . H yperlipidemia, unspecified - E78.5 Plan: * Treatment: * Billing Information: * Visit Code: 39004 Office Visit, Est Pt., Level 4. * Procedure Codes: * Electronic signature of Herman Emanuel MD on 10/12/2024 at 11:15 AM CDT Sign off status: Pending * Provider: Марина CHEATHAM MD, F.A.C.P, F.A.S.N. Date: 0 10/21/2023 Generated for Printing/Faxing/eTransmitting on: 0 10/12/2024 11:15 AM CDT
--- OUTSIDE RECORDS SUMMARY | 2024-10-12 11:15 | XMS_ITS ---
Author Organization [facility] Office Address [address] [place] [address] [place] [address] Care Team Providers Care Clerk Supervisor Name Role Phone Arvin Emanuel Unavailable [phone] Medications Medication SIG (Take, Route, Frequency, Duration) Notes Start Date End Date Status Losartan Potassium 50 MG TAKE 1 TABLET B Y MOUTH ONCE DAILY for 100 Active oxyBUTYnin Chloride 5 MG 1 tablet Orally twice a day for 90 days 06/24/2023 03/20/2024 Active Gabapentin 300 MG 1 capsule Orally Onc e a day for 90 day(s) 04/01/2023 Active Problems Problem Type SNOMED Code ICD Code Onset Dates Problem Status W/U Status Risk Notes Problem Renal osteodystrophy (56503648) Renal osteodystrophy (N25.0) Active confirmed Encounters Encounter Location Date Provider Diagnosis [place] [facility] [address] [facility] 15 [place] [address] 01/20/2024 Arvin Emanuel Chronic kidney disea se, stage 2 (mild) N18.2 ; Type 2 diabetes mellitus with hyperglycemia E11.65 ; Renal osteodystrophy N25.0 ; Abnormal radiologic findings on diagnostic imaging of unspecified kidney R93.429 ; Heart failure, unspecified I50.9 and Hyperlipidemia, unspecified E78.5 Assessments Encounter Date Diagnosis (ICD Code) Assessment Notes Treatment Notes Treatment Clinical Notes Section Notes 01/20/2024 Chronic kidney disease, stage 2 (mild) (ICD-10 - N18.2) 01/20/2024 Type 2 diabetes mellitus with hyperglycemia (ICD-10 - E11.65) 01/20/2024 Renal osteodystrophy (ICD-10 - N25.0) 01/20/2024 Abnormal radiologic findings on diagnostic imaging of unspecified kidney (ICD-10 - R93.429) 01/20/2024 Heart failure, unspecified (ICD-10 - I50.9) 01/20/2024 Hyperlipidemia, unspecified (ICD-10 - E78.5) Plan Of Treatment Next Appt Details Provider Name:Arvin Adelfo , 10/19/2024 01:00:00 PM, [address], [place], [address], Progress Notes * PRINCESS EVANSDOB: [birth year] (79 yo F)Acc No.[id number]:01/20/2024 Progress Notes Patient: PRINCESS HAYES Provider: Марина CHEATHAM MD, F.Kate.C.P, F.A.S.N. :1945 A ge:78 Y S ex:Female Date:01/20/2024 Address:[address] [place] [address] [address] [facility] , [place] [address] Subjective: * Chief Complaints: * * Medical [...] mellitus with hyperglycemia - E11.65 3 . R enal osteodystrophy - N25.0? 4. A bnormal radiologic findings on diagnostic imaging of unspecified kidney - R93.429 5 . H eart failure, unspecified - I50.9 6 . H yperlipidemia, unspecified - E78.5 Plan: * Treatment: * Billing Information: * Visit Code: 77707 Office Visit, Est Pt., Level 4. * Procedure Codes: * Electronic signature of Herman Emanuel MD on 10/12/2024 at 11:14 AM CDT Sign off status: Pending * Provider: Марина CHEATHAM MD, Joan.Kate.C.P, F.A.S.N. Date: 0 01/20/2024 Generated for Printing/Faxing/eTransmitting on: 0 10/12/2024 11:14 AM CDT
[2024-10-12 11:54] LABS: Basophils Percent Auto 0.4 % (0.2-1.2); Eosinophils Absolute Auto 0.2 K/mm3 (0-0.3); Eosinophils Percent Auto 2.6 % (0-4.4); Hematocrit 47.5 % (37.0-47.0); Hemoglobin 15.4 g/dL (12.0-15.0); Immature Granulocyte Absolute 0.03 K/mm3 (0.00-0.031); Immature Granulocyte Percent A 0.4 % (0-0.5); Lymphocytes Percent Auto 28.8 % (18.3-44.2); Mean Corpuscular HGB Conc 32.4 g/dl (32-36); Mean Corpuscular Hemoglobin 28.5 pg (26-34); Mean Corpuscular Volume 87.8 fl (80-100); Monocytes Absolute Auto 0.4 K/mm3 (0.1-0.6); Monocytes Percent Auto 5.6 % (2.6-8.5); Neutrophils Absolute Auto 4.7 K/mm3 (1.3-6.7); Neutrophils Percent Auto 62.2 % (45.5-73.1); Platelet Count Result 261 k/mm3 (150-375); Red Blood Count 5.41 M/mm3 (4.2-5.4); Red Cell Distribution Width 12.7 % (11.5-14.5); White Blood Count 7.6 K/mm3 (4.5-10.0)
[2024-10-12 12:03] LABS: Add Urine Microscopic? YES; Appearance Urine Clear (Clear); Bacteria Urine 4+ /hpf; Bilirubin Urine Negative (Negative); Blood Urine Negative (Negative); Color Urine Yellow (Yellow); Glucose Urine UA Negative (Negative); Ketones Urine Negative (Negative); Leukocyte Esterase Ur 3+ LEU/UL (Negative); Nitrate Urine Negative (Negative); Non Pathogenic Casts 0-2; Protein Urine Negative (Negative); RBC Urine 0-2 /hpf (0-2); Specific Grav Ur 1.006 (1.001-1.035); Squamous Epithelial Cell Urine None Seen /hpf (Few); Urobilinogen Urine 0.2 mg/dL (<2.0)
[2024-10-12 12:06] LABS: Cholesterol 162 mg/dL (0-200); HDL Direct 63 mg/dL; Triglycerides 170 mg/dL (<150)
[2024-10-12 12:08] LABS: Alanine Aminotransferase 38 U/L (6-35); Albumin Level 4.7 g/dL (3.5-5.1); Alkaline Phosphatase 87 U/L (38-126); Anion Gap 7 mmol/L (4-12); Aspartate Amino Transferase 32 U/L (14-36); Bilirubin,Total 0.5 mg/dL (0.2-1.3); Blood Urea Nitrogen 12 mg/dL (7-17); Calcium 9.8 mg/dL (8.4-10.2); Carbon Dioxide 30 mmol/L (22-30); Chloride 103 mmol/L (98-107); Estimated Glomerular Filt Rate > 60; Glucose 134 mg/dL (65-110); Hemoglobin A1C 6.7 % (<5.7); Potassium 4.2 mmol/L (3.4-5.0); Sodium 140 mmol/L (137-145); Uric Acid 4.5 mg/dL (2.5-7.5)
[2024-10-12 12:21] LABS: LDL Cholesterol Direct 63 mg/dL
[2024-10-12 12:33] LABS: Parathyroid Intact 26.9 pg/mL (14.5-75.2)
[2024-10-12 12:34] LABS: MALB Creatinine Ratio < 30.0 mg/g (0-30); Microalbumin Urine Random < 6.0 mg/L (0-16.7)
[2024-10-12 12:39] LABS: Vitamin D 25 Hydroxy 87.1 ng/mL
== END 2024-10-12 11:06 | disposition home or self-care (01) ==
PROVIDERS: PCP Internal Medicine; Referring Provider Specialist; Visit Provider Internal Medicine
DX: E78.5 Hyperlipidemia, unspecified (principal); E11.65 Type 2 diabetes mellitus with hyperglycemia; E11.22 Type 2 diabetes mellitus with diabetic chronic kidney disease; I12.9 Hypertensive chronic kidney disease with stage 1 through stage 4 chronic kidney disease, or unspecified chronic kidney disease; N18.30 Chronic kidney disease, stage 3 unspecified; D64.9 Anemia, unspecified; E55.9 Vitamin D deficiency, unspecified; E21.3 Hyperparathyroidism, unspecified; N39.0 Urinary tract infection, site not specified; R79.89 Other specified abnormal findings of blood chemistry; E78.41 Elevated Lipoprotein(a); R94.6 Abnormal results of thyroid function studies; Z71.3 Dietary counseling and surveillance; Z13.820 Encounter for screening for osteoporosis
CPT/HCPCS: 36415; 80053; 80061; 81001; 82043; 82306; 82607; 83036; 83970; 84443; 84550; 85025; 87077; 87086; 87186